=== PATIENT | female | born 1985 | race Hispanic/Latino ===

== ENCOUNTER 2018-01-30 07:23 | Emergency (ER) | payer BC, OTHER ==
[2018-01-30] MEDS ORDERED: HYDROCODONE/CHLORPHEN 5 ML/OSYR ONE (08:03)
--- NOTE | 2018-01-30 08:18 | EDPHYS ---
Physician Documentation [facility] Name: Sendy Bauer Age: 32 yrs Sex: Female : 1985 Arrival Date: 01/30/2018 Time: 07:26 Bed 13 Private MD: ED Physician Antonio Corea HPI: 01/30 07:32 This 32 yrs old Female presents to ER via Unassigned with complaints of Sinus rh1 Congestion, Cough, Breathing Difficulty. 07:32 The patient or guardian reports cough, described as moderate, with productive sputum, rh1 that is white. Onset: The symptoms/episode began/occurred 2 week(s) ago. Severity of symptoms: At their worst the symptoms were moderate, in the emergency department the symptoms are unchanged. Modifying factors: The symptoms are alleviated by mucinex, the symptoms are aggravated by nothing. Associated signs and symptoms: Pertinent positives: chest pain, with cough, rhinorrhea, vomiting, Pertinent negatives: diarrhea, nausea. The patient has not experienced similar symptoms in the past. The patient has not recently seen a physician. Began with runny nose/congestion, facial pain/pressure 2 weeks ago, gradually getting worse. Reports 2 days ago began with coughing, worse at night. Reports increased coughing today, and sternal, non - radiating, chest pain with breathing/coughing. No SOB, diaphoresis.. 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 - Social history:: Smoking status: Patient/guardian denies using tobacco. - Ebola Screening: : Patient negative for fever greater than or equal to 101.5 degrees Fahrenheit, and additional compatible Ebola Virus Disease symptoms Patient denies exposure to infectious person Patient denies travel to an Ebola-affected area in the 21 days before illness onset No symptoms or risks identified at this time. - Family history:: not pertinent. ROS: 07:32 Constitutional: Negative for fever, chills rh1 07:32 ENT: Positive for nasal discharge, rhinorrhea, sinus congestion, sinus pain. 07:32 Cardiovascular: Positive for chest pain, Negative for edema, palpitations. 07:32 Respiratory: Positive for cough, Negative for hemoptysis, shortness of breath, wheezing. 07:32 Abdomen/GI: Positive for vomiting, post - tussive emesis, Negative for abdominal pain, nausea. 07:32 Back: Negative for decreased range of motion, pain at rest, pain with movement, radiated pain. 07:32 MS/extremity: Negative for pain, swelling, tenderness. 07:32 Neuro: Negative for altered mental status, dizziness. 07:32 All other systems are negative. Exam: 07:32 Constitutional: This is a well developed, well nourished patient who is awake, alert, rh1 and in no acute distress. Head/Face: Normocephalic, atraumatic. 07:32 Neck: Trachea midline, and no cervical lymphadenopathy. Supple, full range of motion without nuchal rigidity. No Meningismus. Chest/axilla: Normal chest wall appearance and motion. Nontender with no deformity. No lesions are appreciated. Cardiovascular: Regular rate and rhythm with a normal S1 and S2. No gallops, murmurs, or rubs. No JVD. No pulse deficits. Respiratory: Lungs have equal breath sounds bilaterally, clear to auscultation. No rales, rhonchi or wheezes noted. No increased work of breathing. Abdomen/GI: Soft, non-tender, with normal bowel sounds. No distension. No guarding or rebound. No evidence of tenderness throughout. Back: No spinal tenderness. No costovertebral tenderness. Full range of motion. Skin: Warm, dry with normal turgor. Normal color with no rashes, no lesions, and no evidence of cellulitis. 07:32 ENT: External ear(s): are unremarkable, no pain with movement, Ear canal(s): are normal, clear, no cerumen impaction, no erythema, no foreign body, no purulent discharge, no swelling, TM's: are normal, no evidence of bulging, no dullness, no erythema, no fluid levels, no hemotympanum, no rupture, normal bony landmarks, Nose: Nasal mucosa: edematous, erythematous, Turbinates: are swollen bilaterally, nasal drainage, that is moderate, and is seen coming from both nares, that is clear, Mouth: is normal, no lip abnormalities, no mucosal abnormalities, Posterior pharynx: is normal, airway is patent, no exudate, no peritonsilar mass, no pooling of secretions, no swelling, normal tonsil apperance, normal sized tonsils, normal uvula appearance, normal uvula size, erythema, that is mild. 07:32 Musculoskeletal/extremity: DVT Exam: No signs of deep vein thrombosis. no pain, no swelling, no tenderness, negative Homans' sign noted on exam, no appreciated bluish discoloration, no erythema, no increased warmth. 07:32 Neuro: Orientation: is normal, to person, place \T\ time. Mentation: is normal, lucid, able to follow commands, Motor: is normal, moves all fours, Sensation: is normal, no obvious gross deficits, Gait: is steady, at a normal pace, without difficulty. Vital Signs: 07:42 BP 105 / 74; Pulse 82; Resp 16; Temp 98.2(O); Pulse Ox 98% on R/A; Weight 54.88 kg; iw Height 5 ft. 2 in. (157.48 cm); Pain 6/10; 08:24 BP 104 / 75; Pulse 80; Resp 16 S; Pulse Ox 100% on R/A; jl7 07:42 Body Mass Index 22.13 (54.88 kg, 157.48 cm) iw MDM: 07:32 Patient medically screened. rh1 08:16 Data reviewed: vital signs, nurses notes, radiologic studies, plain films, and as a rh1 result, I will discharge patient. Data interpreted: Pulse oximetry: on room air is 98 %. Interpretation: normal. Counseling: I had a detailed discussion with the patient and/or guardian regarding: the historical points, exam findings, and any diagnostic results supporting the discharge/admit diagnosis, radiology results, the need for outpatient follow up, a family practitioner, to return to the emergency department if symptoms worsen or persist or if there are any questions or concerns that arise at home. ED course: PERC = 0. 01/30 07:38 Order name: Chest Single View XRAY rh1 01/30 07:38 Order name: EKG - Nurse/Tech; Complete Time: 08:13 rh1 Administered Medications: 08:00 Drug: Tussionex Pennkinetic ER 5 ml Route: PO; jl7 08:25 Follow up: Response: No adverse reaction jl7 Disposition: 18:26 Co-signature as Attending Physician, Antonio Corea MD. Disposition: 01/30/18 08:17 Discharged to Home. Impression: Acute upper respiratory infection, unspecified, Acute sinusitis. - Condition is Stable. - Discharge Instructions: Upper Respiratory Infection, Adult, Cough, Adult. - Prescriptions for Tessalon Perles 100 mg Oral Capsule - take 1 capsule by ORAL route every 8 hours As needed; 15 capsule. Zithromax Z- Jamaal 250 mg Oral Tablet - take 1 tablet by ORAL route as directed for 5 days Day 1 - take two (2) tablets one time. Day 2, 3, 4 , 5 take one (1) tablet once daily.; 6 tablet. - Medication Reconciliation Form, Thank You Letter, Antibiotic Education, Prescription Opioid Use form. - Follow up: Private Physician; When: 1 - 2 days; Reason: Recheck today's complaints, Continuance of care, Re-evaluation by your physician. Follow up: Emergency Department; When: As needed; Reason: Fever > 102 F, If symptoms return, Trouble breathing, Worsening of condition. - Problem is new. - Symptoms have improved. Signatures: Dispatcher [employer] EDZora Cruz RN RN iw Inez Sweeney NP SHOPPER'S AIDE 1 Edin Guerrero RN RN jl7 Starr, Gregory, MD MD Corrections: (The following items were deleted from the chart) 08:25 08:17 01/30/2018 08:17 Discharged to Home. Impression: Acute upper respiratory jl7 infection, unspecified; Acute sinusitis. Condition is Stable. Discharge Instructions: Upper Respiratory Infection, Adult, Cough, Adult. Prescriptions for Tessalon Perles 100 mg Oral Capsule - take 1 capsule by ORAL route every 8 hours As needed; 15 capsule, Zithromax Z-Jamaal 250 mg Oral Tablet - take 1 tablet by ORAL route as directed for 5 days Day 1 - take two (2) tablets one time. Day 2, 3, 4 , 5 take one (1) tablet once daily.; 6 tablet. and Forms are Medication Reconciliation Form, Thank You Letter, Antibiotic Education, Prescription Opioid Use. Follow up: Private Physician; When: 1 - 2 days; Reason: Recheck today's complaints, Continuance of care, Re-evaluation by your physician. Follow up: Emergency Department; When: As needed; Reason: Fever > 102 F, If symptoms return, Trouble breathing, Worsening of condition. Problem is new. Symptoms have improved. rh1
--- NOTE | 2018-01-30 08:18 | ER ---
Nurse's Notes [facility] Name: Sendy Bauer Age: 32 yrs Sex: Female : 1985 Arrival Date: 01/30/2018 Time: 07:26 Bed 13 Private MD: Diagnosis: Acute upper respiratory infection, unspecified;Acute sinusitis Presentation: 01/30 07:40 Presenting complaint: Patient states: sinus congestion, runny nose X 2 weeks, cough X 2 iw days, productive, cough is worse at night, denies fever, also c/o midsternal CP when taking a deep breath and coughing. Transition of care: patient was not received from another setting of care. Onset of symptoms was January 20, 2018. Risk Assessment: Do you want to hurt yourself or someone else? Patient reports no desire to harm self or others. Initial Sepsis Screen: Does the patient meet any 2 criteria? No. Patient's initial sepsis screen is negative. Does the patient have a suspected source of infection? No. Patient's initial sepsis screen is negative. Care prior to arrival: None. 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 - Social history:: Smoking status: Patient/guardian denies using tobacco. - Ebola Screening: : Patient negative for fever greater than or equal to 101.5 degrees Fahrenheit, and additional compatible Ebola Virus Disease symptoms Patient denies exposure to infectious person Patient denies travel to an Ebola-affected area in the 21 days before illness onset No symptoms or risks identified at this time. - Family history:: not pertinent. Screenin:00 Abuse screen: Denies threats or abuse. Denies injuries from another. Nutritional jl7 screening: No deficits noted. Tuberculosis screening: No symptoms or risk factors identified. Fall Risk None identified. Assessment: 08:00 General: Appears in no apparent distress. uncomfortable, Behavior is calm, cooperative, jl7 appropriate for age. Pain: Denies pain. Neuro: Level of Consciousness is awake, alert, obeys commands, Oriented to person, place, time, situation. Cardiovascular: Heart tones present Patient's skin is warm and dry. Rhythm is regular. Respiratory: Airway is patent Respiratory effort is even, unlabored, Respiratory pattern is regular, symmetrical, Breath sounds are clear. Derm: Skin is pink, warm \T\ dry. Vital Signs: 07:42 BP 105 / 74; Pulse 82; Resp 16; Temp 98.2(O); Pulse Ox 98% on R/A; Weight 54.88 kg; iw Height 5 ft. 2 in. (157.48 cm); Pain 6/10; 08:24 BP 104 / 75; Pulse 80; Resp 16 S; Pulse Ox 100% on R/A; jl7 07:42 Body Mass Index 22.13 (54.88 kg, 157.48 cm) iw ED Course: 07:26 Patient arrived in ED. mr 07:28 [facility]ween[facility] rh1 07:28 Antonio Corea MD is Attending Physician. rh1 07:41 Triage completed. iw 07:42 Arm band placed on. iw 07:44 Edin Guerrero, [place] is Primary Nurse. jl7 08:00 Patient has correct armband on for positive identification. Bed in low position. Call jl7 light in reach. Side rails up X 1. Pulse ox on. NIBP on. 08:00 EKG done, by ED staff, reviewed by Inez Sweeney NP. jl7 08:10 Chest Single View XRAY In Process Unspecified. EDMS 08:24 No provider procedures requiring assistance completed. Patient did not have IV access jl7 during this emergency room visit. Administered Medications: 08:00 Drug: Tussionex Pennkinetic ER 5 ml Route: PO; jl7 08:25 Follow up: Response: No adverse reaction jl7 Outcome: 08:17 Discharge ordered by . rh1 08:24 Discharged to home ambulatory, with family. jl7 08:24 Condition: stable 08:24 Discharge instructions given to patient, family, Instructed on discharge instructions, follow up and referral plans. medication usage, Demonstrated understanding of instructions, follow-up care, medications, Prescriptions given X 2. 08:25 Patient left the ED. jl7 Signatures: Dispatcher [employer] EDMD Que Alyson Zora Goodman, RN RN iw Patel, Inez, INSTRUMENTATION AND CONTROLS TECHNICIAN INSTRUMENTATION AND CONTROLS TECHNICIAN rh1 Edin Guerrero RN RN jl7
--- NOTE | 2018-01-30 11:42 | RAD REPORT ---
EXAM DESCRIPTION: RAD - Chest Single View - 01/30/2018 8:09 am CLINICAL HISTORY: Cough;Chest pain Chest pain. COMPARISON: No comparisons FINDINGS: Portable technique limits examination quality. The lungs are grossly clear. The heart is normal in size. No displaced fractures. IMPRESSION: No acute intrathoracic process suspected.
--- NOTE | 2018-01-31 07:41 | EKG ---
Test Date: 2018-01-30 Test Time: 08:05:26 Clay Artisan: LUZ MARINA MEASUREMENT RESULTS: Intervals: Rate: 83 DE: 140 QRSD: 72 QT: 358 QTc: 420 [place]: P: 71 DE: 140 QRS: 63 T: 65 INTERPRETIVE STATEMENTS: Normal sinus rhythm Normal ECG No previous ECG available for comparison Electronically Signed On 01-31-18 07:40:26 CDT by Eladio Matos
== END 2018-01-30 08:25 | disposition home or self-care (01) ==
LOC: ER 07:23
DX: J01.90 Acute sinusitis, unspecified (principal); Z98.82 Breast implant status; Z88.1 Allergy status to other antibiotic agents; Z88.6 Allergy status to analgesic agent
CPT/HCPCS: 71045; 93005; 99284

== ENCOUNTER 2018-03-16 19:04 | Emergency (ER) | payer BC, OTHER ==
[2018-03-16] MEDS ORDERED: KETOROLAC 30 MG/ML INJ ONE (22:55)
--- NOTE | 2018-03-16 23:13 | EDPHYS ---
Physician Documentation [facility] Name: Sendy Bauer Age: 32 yrs Sex: Female : 1985 Arrival Date: 03/16/2018 Time: 19:07 Bed 25 Private MD: None, None ED Physician Antonio Corea HPI: 03/16 22:46 This 32 yrs old Female presents to ER via Ambulatory with complaints of Pelvic snw Pain. 22:46 The patient presents with abdominal pain right lower quadrant, right flank. Onset: The snw symptoms/episode began/occurred gradually, and became worse yesterday. The symptoms do not radiate. Associated signs and symptoms: Pertinent negatives: nausea, vomiting, and diarrhea, fever. The symptoms are described as crampy, vague. Severity of pain: At its worst the pain was moderate. It is unknown whether or not the patient has had similar symptoms in the past. The patient has been recently seen by a physician: the patient's primary care provider, with similar presenting complaints, and apparently given a diagnosis of UTI, was given a prescription for antibiotics. 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 - Social history:: Smoking status: Patient/guardian denies using tobacco. - Ebola Screening: : Patient negative for fever greater than or equal to 101.5 degrees Fahrenheit, and additional compatible Ebola Virus Disease symptoms Patient denies exposure to infectious person Patient denies travel to an Ebola-affected area in the 21 days before illness onset No symptoms or risks identified at this time. ROS: 22:44 Constitutional: Negative for fever, chills, and weight loss, Eyes: Negative for injury, snw pain, redness, and discharge, ENT: Negative for injury, pain, and discharge, Neck: Negative for injury, pain, and swelling, Cardiovascular: Negative for chest pain, palpitations, and edema, Respiratory: Negative for shortness of breath, cough, wheezing, and pleuritic chest pain, Back: Negative for injury and pain, : Negative for injury, bleeding, discharge, and swelling, MS/Extremity: Negative for injury and deformity, Skin: Negative for injury, rash, and discoloration, Neuro: Negative for headache, weakness, numbness, tingling, and seizure. 22:44 Abdomen/GI: Positive for abdominal pain, Negative for nausea and vomiting, diarrhea, constipation, fever. 22:44 : Positive for urinary symptoms, pt currently being tx for UTI, on augmentin. Exam: 22:43 Constitutional: This is a well developed, well nourished patient who is awake, alert, snw and in no acute distress. Head/Face: Normocephalic, atraumatic. Eyes: Pupils equal round and reactive to light, extra-ocular motions intact. Lids and lashes normal. Conjunctiva and sclera are non-icteric and not injected. Cornea within normal limits. Periorbital areas with no swelling, redness, or edema. ENT: Nares patent. No nasal discharge, no septal abnormalities noted. Tympanic membranes are normal and external auditory canals are clear. Oropharynx with no redness, swelling, or masses, exudates, or evidence of obstruction, uvula midline. Mucous membranes moist. Neck: Trachea midline, no thyromegaly or masses palpated, and no cervical lymphadenopathy. Supple, full range of motion without nuchal rigidity, or vertebral point tenderness. No Meningismus. Chest/axilla: Normal chest wall appearance and motion. Nontender with no deformity. No lesions are appreciated. Cardiovascular: Regular rate and rhythm with a normal S1 and S2. No gallops, murmurs, or rubs. Normal PMI, no JVD. No pulse deficits. Respiratory: Lungs have equal breath sounds bilaterally, clear to auscultation and percussion. No rales, rhonchi or wheezes noted. No increased work of breathing, no retractions or nasal flaring. Back: No spinal tenderness. No costovertebral tenderness. Full range of motion. Skin: Warm, dry with normal turgor. Normal color with no rashes, no lesions, and no evidence of cellulitis. MS/ Extremity: Pulses equal, no cyanosis. Neurovascular intact. Full, normal range of motion. Neuro: Awake and alert, GCS 15, oriented to person, place, time, and situation. Cranial nerves II-XII grossly intact. Motor strength 5/5 in all extremities. Sensory grossly intact. Cerebellar exam normal. Normal gait. Psych: Awake, alert, with orientation to person, place and time. Behavior, mood, and affect are within normal limits. 22:43 Abdomen/GI: Inspection: abdomen appears normal, Bowel sounds: normal, Palpation: mild abdominal tenderness, in the posterior aspect of right lateral abdomen and right lower quadrant. Vital Signs: 19:14 BP 109 / 84; Pulse 89; Resp 19; Temp 98.5; Pulse Ox 98% on R/A; Weight 58.51 kg; Height aj 5 ft. 2 in. (157.48 cm); 22:53 BP 102 / 73; Pulse 76; Resp 18; Pulse Ox 96% on R/A; tl3 23:29 BP 98 / 70; Pulse 73; Resp 18; Pulse Ox 96% on R/A; tl3 19:14 Body Mass Index 23.59 (58.51 kg, 157.48 cm) aj MDM: 20:21 Patient medically screened. snw 23:13 Data reviewed: vital signs, nurses notes. Data interpreted: Pulse oximetry: on room air snw is 96 %. Interpretation: acceptable. Counseling: I had a detailed discussion with the patient and/or guardian regarding: the historical points, exam findings, and any diagnostic results supporting the discharge/admit diagnosis, lab results, radiology results, the need for outpatient follow up, to return to the emergency department if symptoms worsen or persist or if there are any questions or concerns that arise at home. Special discussion: Based on the patient's Hx, exam, and Dx evaluation, there is no indication for emergent surgery or inpatient Tx. It is understood by the patient/guardian that if the Sx's persist or worsen they need to return immediately for re-evaluation. Based on the history and exam findings, there is no indication for further emergent testing or inpatient evaluation. I discussed with the patient/guardian the need to see the OB Gyne specialist for further evaluation of the symptoms. 03/16 22:29 Order name: Urine Dipstick--Ancillary (enter results); Complete Time: 23:20 em1 03/16 19:36 Order name: Urine Test (obtain specimen); Complete Time: 22:27 snw 03/16 19:36 Order name: Urine Dipstick-Ancillary (obtain specimen); Complete Time: 22:27 sn 03/16 22:00 Order name: CT Stone Protocol [facility] Administered Medications: 22:51 Drug: TORadol 60 mg Route: IM; Site: right gluteus; tl3 23:30 Follow up: Response: No adverse reaction; Pain is decreased tl3 Disposition: 03/16/18 23:11 Discharged to Home. Impression: Follicular cyst of ovary, Lower abdominal pain, unspecified. - Condition is Stable. - Discharge Instructions: Abdominal Pain, Adult, Ovarian Cyst, [id number], Heat Therapy. - Prescriptions for Diclofenac Sodium 75 mg Oral Tablet Sustained Release - take 1 tablet by ORAL route 2 times per day; 30 tablet. - Medication Reconciliation Form, Thank You Letter, Antibiotic Education, Prescription Opioid Use form. - Follow up: Private Physician; When: 2 - 3 days; Reason: Recheck today's complaints, Continuance of care, Re-evaluation by your physician. Follow up: Emergency Department; When: As needed; Reason: Worsening of condition. - Problem is new. - Symptoms are unchanged. - Notes: Please continue antibiotics Addendum: 03/19/2018 06:45 Co-signature as Attending Physician, Antonio Corea MD. g s Signatures: Dispatcher [employer] Lashae Mendes RN RN Nimco Staples, INTEGRATED LOGISTICS SUPPORT MANAGER-C INTEGRATED LOGISTICS SUPPORT MANAGER-Csnw Antonio Corea MD MD gs Lowrey, Tammy RN RN tl3 Corrections: (The following items were deleted from the chart) 03/16 23:12 23:11 03/16/2018 23:11 Discharged to Home. Impression: Follicular cyst of ovary; Lower snw abdominal pain, unspecified. Condition is Stable. Forms are Medication Reconciliation Form, Thank You Letter, Antibiotic Education, Prescription Opioid Use. Follow up: Private Physician; When: 2 - 3 days; Reason: Recheck today's complaints, Continuance of care, Re-evaluation by your physician. Follow up: Emergency Department; When: As needed; Reason: Worsening of condition. [facility] 23:31 23:12 03/16/2018 23:11 Discharged to Home. Impression: Follicular cyst of ovary; Lower tl3 abdominal pain, unspecified. Condition is Stable. Forms are Medication Reconciliation Form, Thank You Letter, Antibiotic Education, Prescription Opioid Use. Follow up: Private Physician; When: 2 - 3 days; Reason: Recheck today's complaints, Continuance of care, Re-evaluation by your physician. Follow up: Emergency Department; When: As needed; Reason: Worsening of condition. Problem is new. Symptoms are unchanged. snw
--- NOTE | 2018-03-16 23:13 | ER ---
Nurse's Notes [facility] Name: Sendy Bauer Age: 32 yrs Sex: Female : 1985 Arrival Date: 03/16/2018 Time: 19:07 Bed 25 Private MD: None, None Diagnosis: Follicular cyst of ovary;Lower abdominal pain, unspecified Presentation: 03/16 19:13 Presenting complaint: Patient states: RLQ pain that radiates to back that started aj yesterday. Patient DX with UTI on 03/07 and started on abx. Transition of care: patient was not received from another setting of care. Onset of symptoms was March 15, 2018. Risk Assessment: Do you want to hurt yourself or someone else? Patient reports no desire to harm self or others. Initial Sepsis Screen: Does the patient meet any 2 criteria? No. Patient's initial sepsis screen is negative. Does the patient have a suspected source of infection? No. Patient's initial sepsis screen is negative. Care prior to arrival: None. 19:13 Method Of Arrival: Ambulatory 19:13 Acuity: JAMIE 3 aj Triage Assessment: 19:14 General: Appears in no apparent distress. uncomfortable, Behavior is calm, cooperative, aj appropriate for age. Pain: Complains of pain in right lower quadrant. Neuro: Level of Consciousness is awake, alert, obeys commands, Oriented to person, place, time, situation, Appropriate for age. Respiratory: Airway is patent Trachea midline Respiratory effort is even, unlabored, Respiratory pattern is regular, symmetrical. GI: Reports lower abdominal pain, nausea. Derm: Skin is intact, is healthy with good turgor, Skin is pink, warm \T\ dry. normal. 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 - Social history:: Smoking status: Patient/guardian denies using tobacco. - Ebola Screening: : Patient negative for fever greater than or equal to 101.5 degrees Fahrenheit, and additional compatible Ebola Virus Disease symptoms Patient denies exposure to infectious person Patient denies travel to an Ebola-affected area in the 21 days before illness onset No symptoms or risks identified at this time. Screenin:18 Abuse screen: Denies threats or abuse. Nutritional screening: No deficits noted. tl3 Tuberculosis screening: No symptoms or risk factors identified. Fall Risk None identified. Assessment: 21:39 Reassessment: pt diagnosed with UTI on 03/07 and put on Augmentin, bran has not gotten tl3 better. General: Appears distressed, uncomfortable, well groomed, well developed, well nourished, Behavior is calm, cooperative, appropriate for age. Pain: Complains of pain in left low back and abdomen and right lower quadrant Pain currently is 8 out of 10 on a pain scale. Neuro: Level of Consciousness is awake, alert, obeys commands, Oriented to person, place, time, situation, Appropriate for age. Cardiovascular: Patient's skin is warm and dry. Respiratory: Airway is patent Respiratory effort is even, unlabored, Respiratory pattern is regular, symmetrical. GI: No signs and/or symptoms were reported involving the gastrointestinal system. : Urine is Reports pain in right flank(s), lower quadrant(s) with urination. EENT: No signs and/or symptoms were reported regarding the EENT system. Derm: No signs and/or symptoms reported regarding the dermatologic system. Musculoskeletal: No signs and/or symptoms reported regarding the musculoskeletal system. 22:53 Reassessment: Patient appears in no apparent distress at this time. No changes from tl3 previously documented assessment. Patient and/or family updated on plan of care and expected duration. Pain level reassessed. Patient is alert, oriented x 3, equal unlabored respirations, skin warm/dry/pink. lights dimmed, blanket offered, no other needs at this time. 23:29 Reassessment: Patient appears in no apparent distress at this time. No changes from tl3 previously documented assessment. Patient and/or family updated on plan of care and expected duration. Pain level reassessed. Patient is alert, oriented x 3, equal unlabored respirations, skin warm/dry/pink. Vital Signs: 19:14 BP 109 / 84; Pulse 89; Resp 19; Temp 98.5; Pulse Ox 98% on R/A; Weight 58.51 kg; Height aj 5 ft. 2 in. (157.48 cm); 22:53 BP 102 / 73; Pulse 76; Resp 18; Pulse Ox 96% on R/A; tl3 23:29 BP 98 / 70; Pulse 73; Resp 18; Pulse Ox 96% on R/A; tl3 19:14 Body Mass Index 23.59 (58.51 kg, 157.48 cm) ED Course: 19:07 Patient arrived in ED. mr 19:08 None, None is Private Physician. mr 19:13 Triage completed. aj 19:14 Arm band placed on right wrist. Patient placed in waiting room, Patient notified of wait time. 19:35 Nimco Judge FNP-C [facility]. snw 19:35 Antonio Corea MD is Attending Physician. snw 21:39 Clara Johnson, RN is Primary Nurse. tl3 22:[address] via wheelchair. tl3 22:18 Patient has correct armband on for positive identification. tl3 22:18 No provider procedures requiring assistance completed. tl3 22:21 CT completed. Patient tolerated procedure well. Patient moved back from [place]. ri 22:24 CT Stone Protocol In Process Unspecified. EDMS 23:29 Patient did not have IV access during this emergency room visit. tl3 Administered Medications: 22:51 Drug: TORadol 60 mg Route: IM; Site: right gluteus; tl3 23:30 Follow up: Response: No adverse reaction; Pain is decreased tl3 Outcome: 23:11 Discharge ordered by . snw 23:29 Discharged to home ambulatory. tl3 23:29 Condition: stable 23:29 Discharge instructions given to patient, Instructed on discharge instructions, follow up and referral plans. Demonstrated understanding of instructions, follow-up care, medications, Prescriptions given X 1. 23:31 Patient left the ED. tl3 Signatures: Dispatcher [employer] Lashae Mendes, RN Nimco Vaughan FNP-C FNP-Chandana QueAlyson mr CruzSuman Tammy, RN RN tl3
[2018-03-16 23:17] LABS: Urine Blood NEGATIVE (NEG); Urine Glucose NEGATIVE (NEG); Urine Protein NEGATIVE (NEG); Urine Specific Gravity 1.025 (1.005-1.030)
--- NOTE | 2018-03-17 07:54 | RAD REPORT ---
EXAM DESCRIPTION: CT - Stone Protocol - 03/17/2018 2:47 am CLINICAL HISTORY: Abdominal pain. Right lower quadrant pain COMPARISON: None. TECHNIQUE: Computed axial tomography of the abdomen pelvis was obtained without oral or IV contrast. Lack of IV and oral contrast limits evaluation of solid organs, bowel, and vessels. Coronal reformat jessica images were obtained and reviewed. Preliminary report was generated by virtual radiologic and rev iewed prior to dictation the All CT scans are performed using dose optimization technique as appropriate and may include automated exposure control or mA/KV adjustment according to patient size. FINDINGS: A renal calculus is not seen. An ureteral calculus is not noted. A bladder calculus is not present. The liver, spleen, pancreas and adrenals appear grossly normal There is no evidence of diverticulitis. The appendix is not seen. If the patient has clinical symptoms to suggest appendicitis then a CT scan with IV and oral contrast and opacification of terminal ileum/ cecum would be recommended A 5 centimeter cystic mass is present within the anterior pelvis. A hysterectomy has been performed IMPRESSION: Negative for a genitourinary calculus 5 centimeter cystic mass in the right pelvis likely representing an ovarian cyst. Significant free fl uid is not noted. Followup ultrasound in a couple months is recommended to assess stability/resolutio n
== END 2018-03-16 23:31 | disposition home or self-care (01) ==
LOC: ER 19:04
DX: N83.00 Follicular cyst of ovary, unspecified side (principal); Z98.82 Breast implant status; Z88.1 Allergy status to other antibiotic agents; Z88.5 Allergy status to narcotic agent
CPT/HCPCS: 74176; 76377; 81003; 96372; 99284

== ENCOUNTER 2018-08-21 08:56 | Emergency (ER) | payer BC, OTHER ==
--- NOTE | 2018-08-21 09:28 | EDPHYS ---
Physician Documentation [facility] Name: Sendy Bauer Age: 32 yrs Sex: Female : 1985 Arrival Date: 08/21/2018 Time: 08:57 Bed 6 Private MD: Sandrine Ga K ED Physician Charanjit Samson HPI: 08/21 09:22 This 32 yrs old Female presents to ER via Ambulatory with complaints of carey Allergic Reaction. 09:22 The patient presents with itching, rash, redness of skin. Onset: The symptoms/episode carey began/occurred 4 day(s) ago. Associated signs and symptoms: The patient has no apparent associated signs or symptoms. Possible causes: poison rusty, poison oak. At home the patient or guardian has treated the symptoms with Benadryl, steroids. Severity of symptoms: At their worst the symptoms were mild in the emergency department the symptoms are unchanged. The patient has not experienced similar symptoms in the past. 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 - Social history:: Smoking status: Patient/guardian denies using tobacco. - Ebola Screening: : No symptoms or risks identified at this time. ROS: 09:24 Constitutional: Negative for fever, chills, and weight loss, Eyes: Negative for injury, carey pain, redness, and discharge, ENT: Negative for injury, pain, and discharge, Neck: Negative for injury, pain, and swelling, Cardiovascular: Negative for chest pain, palpitations, and edema, Respiratory: Negative for shortness of breath, cough, wheezing, and pleuritic chest pain, Abdomen/GI: Negative for abdominal pain, nausea, vomiting, diarrhea, and constipation, Back: Negative for injury and pain, : Negative for injury, bleeding, discharge, and swelling, MS/Extremity: Negative for injury and deformity, Neuro: Negative for headache, weakness, numbness, tingling, and seizure, Psych: Negative for depression, anxiety, suicide ideation, homicidal ideation, and hallucinations, Allergy/Immunology: Negative for hives, rash, and allergies, Endocrine: Negative for neck swelling, polydipsia, polyuria, polyphagia, and marked weight changes, Hematologic/Lymphatic: Negative for swollen nodes, abnormal bleeding, and unusual bruising. 09:24 Skin: Positive for rash, diffusely. Exam: :24 Constitutional: This is a well developed, well nourished patient who is awake, alert, carey and in no acute distress. Head/Face: Normocephalic, atraumatic. Eyes: Pupils equal round and reactive to light, extra-ocular motions intact. Lids and lashes normal. Conjunctiva and sclera are non-icteric and not injected. Cornea within normal limits. Periorbital areas with no swelling, redness, or edema. ENT: Nares patent. No nasal discharge, no septal abnormalities noted. Tympanic membranes are normal and external auditory canals are clear. Oropharynx with no redness, swelling, or masses, exudates, or evidence of obstruction, uvula midline. Mucous membranes moist. Neck: Trachea midline, no thyromegaly or masses palpated, and no cervical lymphadenopathy. Supple, full range of motion without nuchal rigidity, or vertebral point tenderness. No Meningismus. Chest/axilla: Normal chest wall appearance and motion. Nontender with no deformity. No lesions are appreciated. Cardiovascular: Regular rate and rhythm with a normal S1 and S2. No gallops, murmurs, or rubs. Normal PMI, no JVD. No pulse deficits. Respiratory: Lungs have equal breath sounds bilaterally, clear to auscultation and percussion. No rales, rhonchi or wheezes noted. No increased work of breathing, no retractions or nasal flaring. Abdomen/GI: Soft, non-tender, with normal bowel sounds. No distension or tympany. No guarding or rebound. No evidence of tenderness throughout. Back: No spinal tenderness. No costovertebral tenderness. Full range of motion. Pelvic Exam: Normal external genitalia. Speculum exam with closed cervical os, no discharge or bleeding noted. Bimanual exam with normal adnexa, no adnexal or cervical motion tenderness. Normal uterus. MS/ Extremity: Pulses equal, no cyanosis. Neurovascular intact. Full, normal range of motion. Neuro: Awake and alert, GCS 15, oriented to person, place, time, and situation. Cranial nerves II-XII grossly intact. Motor strength 5/5 in all extremities. Sensory grossly intact. Cerebellar exam normal. Normal gait. Psych: Awake, alert, with orientation to person, place and time. Behavior, mood, and affect are within normal limits. 09:24 Skin: Appearance: Color: erythematous, cellulitis, that is minimal, rash a moderate rash is noted, rash can be described as erythematous, macular, raised, contact dermatitis, and is diffusely located. Vital Signs: 09:07 BP 120 / 85; Pulse 96; Resp 16; Temp 97.8; Pulse Ox 98% on R/A; Pain 0/10; hb 09:56 BP 108 / 79; Pulse 88; Resp 16; Pulse Ox 99% ; sv MDM: 09:07 Patient medically screened. [facility] 09:24 Data reviewed: vital signs, nurses notes. [facility] Administered Medications: 09:34 Drug: Decadron 10 mg Route: IM; Site: right deltoid; sv 09:56 Follow up: Response: No adverse reaction sv 09:34 Drug: Benadryl 50 mg Route: PO; sv 09:56 Follow up: Response: No adverse reaction sv 09:34 Drug: Pepcid 40 mg Route: PO; sv 09:56 Follow up: Response: No adverse reaction sv Disposition: 08/21/18 09:26 Discharged to Home. Impression: Rash and other nonspecific skin eruption - contact. - Condition is Stable. - Discharge Instructions: Contact Dermatitis, Rash, Rash, Vmyo-[id number], Contact Dermatitis, [id number]. - Prescriptions for Bactroban 2 % Topical Ointment - Apply to affected area 1 application by TOPICAL route every 12 hours; 30 gram. Benadryl 25 mg Oral Capsule - take 1 capsule by ORAL route every 6 hours As needed; 30 tablet. Pepcid 20 mg Oral Tablet - take 1 tablet by ORAL route every 12 hours for 10 days; 20 tablet. Medrol (Jamaal) 4 mg Oral Tablets, Dose Pack - take 1 tablet by ORAL route as directed - follow package instructions; 1 packet. - Medication Reconciliation Form, Thank You Letter, Antibiotic Education, Prescription Opioid Use form. - Follow up: Sandrine Ga MD; When: 2 - 3 days; Reason: Recheck today's complaints, Continuance of care, Re-evaluation by your physician. - Problem is new. - Symptoms have improved. Signatures: Edelmira Meyer RN RN Charanjit Mason MD MD cha Baxter, Heather, RN RN Corrections: (The following items were deleted from the chart) 09:57 09:26 08/21/2018 09:26 Discharged to Home. Impression: Rash and other nonspecific skin sv eruption - contact. Condition is Stable. Forms are Medication Reconciliation Form, Thank You Letter, Antibiotic Education, Prescription Opioid Use. Follow up: Sandrine Ga; When: 2 - 3 days; Reason: Recheck today's complaints, Continuance of care, Re-evaluation by your physician. Problem is new. Symptoms have improved. carey
--- NOTE | 2018-08-21 09:28 | ER ---
Nurse's Notes [facility] Name: Sendy Bauer Age: 32 yrs Sex: Female : 1985 Arrival Date: 08/21/2018 Time: 08:57 Bed 6 Private MD: Sandrine Ga K Diagnosis: Rash and other nonspecific skin eruption-contact Presentation: 08/21 09:05 Presenting complaint: Rash on trunk and arms after exposure to poison rusty one week ago, hb rash spread to neck and face today. Seen at urgent care on Wednesday, received steroid shot, on methylprednisolone, Kenalog, and hydroxyzine. Transition of care: patient was not received from another setting of care. Onset: The symptoms/episode began/occurred gradually, last week, and became worse today, yesterday. Anaphylaxis evaluation, the patient reports or I have noted the following symptoms which indicate a significant risk of anaphylaxis: no signs or symptoms of anaphylaxis were noted. Onset of symptoms was August 15, 2018. Risk Assessment: Do you want to hurt yourself or someone else? Patient reports no desire to harm self or others. Initial Sepsis Screen: Does the patient meet any 2 criteria? No. Patient's initial sepsis screen is negative. Does the patient have a suspected source of infection? No. Patient's initial sepsis screen is negative. Care prior to arrival: None. 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 - Social history:: Smoking status: Patient/guardian denies using tobacco. - Ebola Screening: : No symptoms or risks identified at this time. Screenin:07 Abuse screen: Denies threats or abuse. Denies injuries from another. Nutritional sv screening: No deficits noted. Tuberculosis screening: No symptoms or risk factors identified. Fall Risk None identified. Assessment: 09:07 General: Appears in no apparent distress. comfortable, well groomed, well developed, sv Behavior is calm, cooperative, appropriate for age. Pain: Denies pain. Neuro: Level of Consciousness is awake, alert, obeys commands, Oriented to person, place, time, situation, Moves all extremities. Full function Gait is steady. Respiratory: Airway is patent Respiratory effort is even, unlabored, Respiratory pattern is regular, symmetrical. Derm: Skin is pink, warm \T\ dry. Rash noted that is itchy, red, urticaria, on face, chest and abdomen. 09:56 Reassessment: Patient appears in no apparent distress at this time. No changes from sv previously documented assessment. Patient and/or family updated on plan of care and expected duration. Pain level reassessed. Patient is alert, oriented x 3, equal unlabored respirations, skin warm/dry/pink. Vital Signs: 09:07 BP 120 / 85; Pulse 96; Resp 16; Temp 97.8; Pulse Ox 98% on R/A; Pain 0/10; hb 09:56 BP 108 / 79; Pulse 88; Resp 16; Pulse Ox 99% ; sv ED Course: 08:57 Patient arrived in ED. mr 08:58 Sandrine Ga MD is Private Physician. mr 09:05 Edelmira Meyer, [place] is Primary Nurse. sv 09:07 Charanjit Samsno MD is Attending Physician. carey 09:07 Triage completed. hb 09:07 Arm band placed on. sv 09:07 Patient has correct armband on for positive identification. Bed in low position. Call sv light in reach. Adult w/ patient. Pulse ox on. NIBP on. Door closed. Head of bed elevated. 09:26 Sandrine Ga MD is Referral Physician. carey 09:37 No provider procedures requiring assistance completed. Patient did not have IV access sv during this emergency room visit. Administered Medications: 09:34 Drug: Decadron 10 mg Route: IM; Site: right deltoid; sv 09:56 Follow up: Response: No adverse reaction sv 09:34 Drug: Benadryl 50 mg Route: PO; sv 09:56 Follow up: Response: No adverse reaction sv 09:34 Drug: Pepcid 40 mg Route: PO; sv 09:56 Follow up: Response: No adverse reaction sv Outcome: 09:26 Discharge ordered by . carey 09:56 Discharged to home ambulatory, with family. sv 09:56 Condition: stable 09:56 Discharge instructions given to patient, Instructed on discharge instructions, follow up and referral plans. medication usage, Demonstrated understanding of instructions, follow-up care, medications, Prescriptions given X 3. 09:57 Patient left the ED. sv Signatures: Edelmira Meyer RN RN sv Anderson, Corey, MD MD cha Rivera [facility] Marine Clark, [place] PERRY
[2018-08-21] MEDS ORDERED: DEXAMETHASONE 10 MG/ML VIAL ONE (09:41)
[2018-08-21] MEDS ORDERED: FAMOTIDINE 20 MG TAB ONE (09:42)
[2018-08-21] MEDS ORDERED: DIPHENHYDRAMINE 25 MG TAB/CAP ONE (09:42)
== END 2018-08-21 09:57 | disposition home or self-care (01) ==
LOC: ER 08:56
DX: R21 Rash and other nonspecific skin eruption (principal); L29.9 Pruritus, unspecified; Z88.1 Allergy status to other antibiotic agents; Z88.5 Allergy status to narcotic agent
CPT/HCPCS: 96372; 99283; J1100

== ENCOUNTER 2018-09-04 09:39 | Emergency (ER) | payer BC, OTHER ==
[2018-09-04 10:34] LABS: Absolute Lymphocytes (CBC) 0.6 K/uL (0.7-4.9); Absolute Monocytes 0.8 K/uL (0.1-1.3); Absolute Neutrophil 7.6 K/uL (1.8-8.0); Basophils % 0.1 % (0-1.3); Eosinophils % 0.8 % (0-4.4); Hematocrit 39.4 % (36.0-45.0); MPV 7.7 fL (7.6-11.3); Monocytes % 8.6 % (3.3-12.3); RBC Red Blood Cell Count 4.42 M/uL (3.86-4.86)
[2018-09-04] MEDS ORDERED: NA CHLORIDE 0.9% 1,000 ML ONE (10:39)
[2018-09-04] MEDS ORDERED: PROMETHAZINE 25 MG/ML VIAL ONE (10:39)
[2018-09-04 11:01] LABS: ALT/SGPT 18 U/L (12-78); AST/SGOT 13 U/L (15-37); Albumin 3.3 g/dL (3.4-5.0); Alkaline Phosphatase 54 U/L (45-117); BUN Blood Urea Nitrogen 14 mg/dL (7-18); Bicarbonate 25 mmol/L (21-32); Bilirubin Direct < 0.1 mg/dL (0-0.2); Bilirubin Total 0.5 mg/dL (0.2-1.0); Glucose Level 149 mg/dL (74-106); Lipase 72 U/L (73-393); Potassium 3.8 mmol/L (3.5-5.1); Protein, Total 7.3 g/dL (6.4-8.2); Sodium Level 139 mmol/L (136-145)
[2018-09-04 11:53] LABS: Urine Bacteria <20 /HPF (<20); Urine Culture Reflex Order NOT NEEDED; Urine Mucus 1+ /HPF (NONE SEEN); Urine RBC <5 /HPF (NONE SEEN)
[2018-09-04] MEDS ORDERED: DICYCLOMINE HCL 10 MG CAP ONE (11:55)
--- NOTE | 2018-09-04 12:16 | ER ---
Nurse's Notes [facility] Name: Sendy Bauer Age: 32 yrs Sex: Female : 1985 Arrival Date: 09/04/2018 Time: 09:40 Bed 7 Private MD: Sandrine Ga K Diagnosis: Nausea and vomiting;Diarrhea, unspecified Presentation: 09/04 10:02 Presenting complaint: Patient states: N/V/D, generalized abd cramping and fever x 2 ss days. Transition of care: patient was not received from another setting of care. Onset of symptoms was September 02, 2018. Risk Assessment: Do you want to hurt yourself or someone else? Patient reports no desire to harm self or others. Initial Sepsis Screen: Does the patient meet any 2 criteria? No. Patient's initial sepsis screen is negative. Does the patient have a suspected source of infection? No. Patient's initial sepsis screen is negative. Care prior to arrival: None. 10:02 Method Of Arrival: Ambulatory ss 10:02 Acuity: JAMIE 3 ss Historical: - Allergies: 10:08 Cipro; ss 10:08 Tramadol HCl; ss - Home Meds: 10:08 None [Active]; ss - PMHx: 10:08 None; ss - PSHx: 10:08 Hysterectomy; ; breast augmentation; ss - Immunization history:: Adult Immunizations up to date. - Social history:: Smoking status: Patient/guardian denies using tobacco. - Ebola Screening: : Patient denies exposure to infectious person Patient denies travel to an Ebola-affected area in the 21 days before illness onset. Screenin:10 Abuse screen: Denies threats or abuse. Denies injuries from another. Nutritional sg screening: No deficits noted. Tuberculosis screening: No symptoms or risk factors identified. Never had TB. Fall Risk None identified. Assessment: 10:10 General: Appears in no apparent distress. well groomed, well developed, well nourished, sg Behavior is calm, cooperative, appropriate for age. Pain: Complains of pain in abdomen Quality of pain is described as aching. Neuro: Level of Consciousness is awake, alert, obeys commands, Oriented to person, place, time, situation, Rail Track Layer are equal bilaterally Moves all extremities. Full function Gait is steady, Speech is normal, Facial symmetry appears normal, Pupils are PERRLA. Cardiovascular: Patient's skin is warm and dry. Respiratory: Airway is patent Respiratory effort is even, unlabored, Respiratory pattern is regular, symmetrical, Breath sounds are clear. GI: Abdomen is flat, non-distended, Bowel sounds present X 4 quads. Abd is soft and non tender X 4 quads. Reports diarrhea, nausea, vomiting. : No signs and/or symptoms were reported regarding the genitourinary system. EENT: No signs and/or symptoms were reported regarding the EENT system. EENT: Oral mucosa is moist. Derm: Skin is pale. Derm: Rash noted that is red, on abdomen, dorsal aspect of right forearm and right wrist. Musculoskeletal: No signs and/or symptoms reported regarding the musculoskeletal system. 11:59 Reassessment: Patient appears in no apparent distress at this time. Patient and/or sg family updated on plan of care and expected duration. Pain level reassessed. Patient states symptoms have not improved. Vital Signs: 10:08 BP 108 / 77; Pulse 109; Resp 17; Temp 99.6(TE); Pulse Ox 97% on R/A; Weight 56.7 kg; ss Height 5 ft. 2 in. (157.48 cm); Pain 4/10; 11:51 BP 103 / 71; Pulse 98; Resp 18 S; Pulse Ox 99% on R/A; sg 12:45 BP 108 / 72; Pulse 97; Resp 17; Pulse Ox 99% on R/A; Pain 2/10; sg 10:08 Body Mass Index 22.86 (56.70 kg, 157.48 cm) ED Course: 09:40 Patient arrived in ED. as 09:40 Sandrine Ga MD is Private Physician. as 09:56 Nimco Judge FNP-C [facility]. snw 09:56 Charanjit Samson MD is Attending Physician. snw 10:07 Triage completed. ss 10:08 Arm band placed on right wrist. ss 10:10 Initial lab(s) drawn, by me, sent to lab. Inserted saline lock: 22 gauge in right sg antecubital area, using aseptic technique. Blood collected. 10:15 Patient has correct armband on for positive identification. Bed in low position. Call sg light in reach. Pulse ox on. NIBP on. 10:20 Velez, Mika, RN is Primary Nurse. sg 11:37 Urine collected: clean catch specimen, ramya colored. 3 12:15 Sandrine Ga MD is Referral Physician. snw 13:00 No provider procedures requiring assistance completed. IV discontinued, intact, sg bleeding controlled, No redness/swelling at site. Pressure dressing applied. Administered Medications: 10:30 Drug: NS 0.9% 1000 ml Route: IV; Rate: 1 bolus; Site: right antecubital; sg 11:29 Follow up: IV Status: Completed infusion; IV Intake: 1000ml ss 10:30 Drug: Phenergan 6.25 mg Route: IVP; Site: right antecubital; sg 11:17 Follow up: Response: No adverse reaction sg 11:51 Drug: Bentyl 20 mg Route: PO; sg 13:04 Follow up: Response: No adverse reaction sg 12:22 Drug: TORadol 30 mg Route: IVP; Site: right antecubital; sg 13:04 Follow up: Response: No adverse reaction; Pain is decreased sg Intake: 11:29 IV: 1000ml; Total: 1000ml. Outcome: 12:15 Discharge ordered by . snw 13:00 Discharged to home ambulatory, with friend. sg 13:00 Condition: good 13:00 Discharge instructions given to patient, Instructed on discharge instructions, follow up and referral plans. medication usage, safety practices, Demonstrated understanding of instructions, follow-up care, medications, Prescriptions given X 2. 13:05 Patient left the ED. sg Signatures: Mika Velez, RN [place] Nimco Judge, STUDENT OFFICER-C STUDENT OFFICER-Shana Pearson Shelby, RN RN Emelyn Rowley [facility]
--- NOTE | 2018-09-04 12:16 | EDPHYS ---
Physician Documentation [facility] Name: Sendy Bauer Age: 32 yrs Sex: Female : 1985 Arrival Date: 09/04/2018 Time: 09:40 Bed 7 Private MD: Sandrine Ga K ED Physician Charanjit Samson HPI: 09/04 10:25 This 32 yrs old Female presents to ER via Ambulatory with complaints of snw Abdominal Pain, Vomiting/Diarrhea. 10:25 The patient presents with N/V/D. Onset: The symptoms/episode began/occurred suddenly, 3 snw day(s) ago, and became persistent. The symptoms do not radiate. Associated signs and symptoms: none. The symptoms are described as crampy. Severity of pain: At its worst the pain was very mild. It is unknown whether or not the patient has had similar symptoms in the past. The patient has been recently seen by a physician: 1 week(s) ago, with different complaint(s), and apparently was diagnosed with allergic dermatitis - given steroids. Historical: - Allergies: 10:08 Cipro; ss 10:08 Tramadol HCl; ss - Home Meds: 10:08 None [Active]; ss - PMHx: 10:08 None; ss - PSHx: 10:08 Hysterectomy; ; breast augmentation; ss - Immunization history:: Adult Immunizations up to date. - Social history:: Smoking status: Patient/guardian denies using tobacco. - Ebola Screening: : Patient denies exposure to infectious person Patient denies travel to an Ebola-affected area in the 21 days before illness onset. ROS: 10:24 Constitutional: Negative for fever, chills, and weight loss, Eyes: Negative for injury, snw pain, redness, and discharge, ENT: Negative for injury, pain, and discharge, Neck: Negative for injury, pain, and swelling, Cardiovascular: Negative for chest pain, palpitations, and edema, Respiratory: Negative for shortness of breath, cough, wheezing, and pleuritic chest pain. 10:24 Back: Negative for injury and pain, : Negative for injury, bleeding, discharge, and swelling, MS/Extremity: Negative for injury and deformity, Neuro: Negative for headache, weakness, numbness, tingling, and seizure. 10:24 Abdomen/GI: Positive for nausea, vomiting, and diarrhea. 10:24 Skin: Positive for improving but still present rash. Exam: 10:22 Constitutional: This is a well developed, well nourished patient who is awake, alert, snw and in no acute distress. Head/Face: Normocephalic, atraumatic. Eyes: Pupils equal round and reactive to light, extra-ocular motions intact. Lids and lashes normal. Conjunctiva and sclera are non-icteric and not injected. Cornea within normal limits. Periorbital areas with no swelling, redness, or edema. ENT: Nares patent. No nasal discharge, no septal abnormalities noted. Tympanic membranes are normal and external auditory canals are clear. Oropharynx with no redness, swelling, or masses, exudates, or evidence of obstruction, uvula midline. Mucous membranes moist. Neck: Trachea midline, no thyromegaly or masses palpated, and no cervical lymphadenopathy. Supple, full range of motion without nuchal rigidity, or vertebral point tenderness. No Meningismus. Chest/axilla: Normal chest wall appearance and motion. Nontender with no deformity. No lesions are appreciated. 10:22 Respiratory: Lungs have equal breath sounds bilaterally, clear to auscultation and percussion. No rales, rhonchi or wheezes noted. No increased work of breathing, no retractions or nasal flaring. Abdomen/GI: Soft, non-tender, with normal bowel sounds. No distension or tympany. No guarding or rebound. No evidence of tenderness throughout. Back: No spinal tenderness. No costovertebral tenderness. Full range of motion. Skin: Warm, dry with normal turgor. Normal color with resolving rashes from recent allergic response, no lesions, and no evidence of cellulitis. (pt still taking oral steroids for allergic rxn) MS/ Extremity: Pulses equal, no cyanosis. Neurovascular intact. Full, normal range of motion. Neuro: Awake and alert, GCS 15, oriented to person, place, time, and situation. Cranial nerves II-XII grossly intact. Motor strength 5/5 in all extremities. Sensory grossly intact. Cerebellar exam normal. Normal gait. 10:22 Cardiovascular: Rate: tachycardic, Heart sounds: normal. Vital Signs: 10:08 BP 108 / 77; Pulse 109; Resp 17; Temp 99.6(TE); Pulse Ox 97% on R/A; Weight 56.7 kg; ss Height 5 ft. 2 in. (157.48 cm); Pain 4/10; 11:51 BP 103 / 71; Pulse 98; Resp 18 S; Pulse Ox 99% on R/A; sg 12:45 BP 108 / 72; Pulse 97; Resp 17; Pulse Ox 99% on R/A; Pain 2/10; sg 10:08 Body Mass Index 22.86 (56.70 kg, 157.48 cm) ss MDM: 09:58 Patient medically screened. snw 12:16 Data reviewed: vital signs, nurses notes. Data interpreted: Pulse oximetry: on room air snw is 99 %. Interpretation: normal. Counseling: I had a detailed discussion with the patient and/or guardian regarding: the historical points, exam findings, and any diagnostic results supporting the discharge/admit diagnosis, lab results, the need for outpatient follow up, to return to the emergency department if symptoms worsen or persist or if there are any questions or concerns that arise at home. Special discussion: Based on the patient's Hx, exam, and Dx evaluation, there is no indication for emergent surgery or inpatient Tx. It is understood by the patient/guardian that if the Sx's persist or worsen they need to return immediately for re-evaluation. Based on the history and exam findings, there is no indication for further emergent testing or inpatient evaluation. I discussed with the patient/guardian the need to see the primary care provider for further evaluation of the symptoms. 09/04 09:57 Order name: Basic Metabolic Panel sn 09/04 09:57 Order name: CBC with Diff; Complete Time: 10:47 snw 09/04 09:57 Order name: Creatinine for Radiology; Complete Time: 11:02 snw 09/04 09:57 Order name: Hepatic Function; Complete Time: 11:02 snw 09/04 09:57 Order name: Lipase; Complete Time: 11:02 snw 09/04 09:58 Order name: Basic Metabolic Panel; Complete Time: 11:02 EDMS 09/04 10:48 Order name: Urine Microscopic Only; Complete Time: 11:55 snw 09/04 11:36 Order name: Urine Dipstick--Ancillary (enter results) ms 09/04 11:36 Order name: Urine --Ancillary (enter results) ms 09/04 09:57 Order name: IV Saline Lock; Complete Time: 10:09 snw 09/04 09:57 Order name: Labs collected and sent; Complete Time: 10:09 snw 09/04 10:48 Order name: Urine Test (obtain specimen); Complete Time: 11:38 snw 09/04 10:48 Order name: Urine Dipstick-Ancillary (obtain specimen); Complete Time: 11:39 snw Administered Medications: 10:30 Drug: NS 0.9% 1000 ml Route: IV; Rate: 1 bolus; Site: right antecubital; sg 11:29 Follow up: IV Status: Completed infusion; IV Intake: 1000ml ss 10:30 Drug: Phenergan 6.25 mg Route: IVP; Site: right antecubital; sg 11:17 Follow up: Response: No adverse reaction sg 11:51 Drug: Bentyl 20 mg Route: PO; sg 13:04 Follow up: Response: No adverse reaction sg 12:22 Drug: TORadol 30 mg Route: IVP; Site: right antecubital; sg 13:04 Follow up: Response: No adverse reaction; Pain is decreased sg Disposition: 09/05 06:46 Co-signature as Attending Physician, Charanjit Samson MD I agree with the assessment and carey plan of care. Disposition: 09/04/18 12:15 Discharged to Home. Impression: Nausea and vomiting, Diarrhea, unspecified. - Condition is Stable. - Discharge Instructions: Food Choices to Help Relieve Diarrhea, Adult, Clear Liquid Diet, Adult, Nausea and Vomiting, Adult, Diarrhea, Adult, [id number]. - Prescriptions for Zofran 4 mg Oral Tablet - take 1 tablet by ORAL route every 12 hours As needed; 20 tablet. - Work release form, Medication Reconciliation Form, Thank You Letter, Antibiotic Education, Prescription Opioid Use form. - Follow up: Sandrine Ga MD; When: 1 - 2 days; Reason: Recheck today's complaints, Continuance of care, Re-evaluation by your physician. Follow up: Emergency Department; When: As needed; Reason: Worsening of condition. Signatures: Dispatcher [employer] Mika Marte RN RN sg Anderson, Corey, MD MD cha Therrien, Shelly, POSTAL INSPECTOR-C POSTAL INSPECTOR-[place] Ani Moon RN RN ss Corrections: (The following items were deleted from the chart) 09/04 13:05 12:15 09/04/2018 12:15 Discharged to Home. Impression: Nausea and vomiting; Diarrhea, sg unspecified. Condition is Stable. Forms are Medication Reconciliation Form, Thank You Letter, Antibiotic Education, Prescription Opioid Use. Follow up: Sandrine Ga; When: 1 - 2 days; Reason: Recheck today's complaints, Continuance of care, Re-evaluation by your physician. Follow up: Emergency Department; When: As needed; Reason: Worsening of condition. snw
[2018-09-04] MEDS ORDERED: KETOROLAC 30 MG/ML INJ ONE (12:30)
[2018-09-04 13:58] LABS: Urine Blood 1+ (NEG); Urine Glucose NEGATIVE (NEG); Urine Protein NEGATIVE (NEG); Urine Specific Gravity 1.015 (1.005-1.030); Urine pH 5.5 (5.0-7.0)
== END 2018-09-04 13:05 | disposition home or self-care (01) ==
LOC: ER 09:39
DX: R11.2 Nausea with vomiting, unspecified (principal); R19.7 Diarrhea, unspecified; Z88.1 Allergy status to other antibiotic agents; Z88.6 Allergy status to analgesic agent
CPT/HCPCS: 36415; 80048; 80076; 81003; 81015; 81025; 83690; 85025; 96361; 96374; 96375; 99284; J2550; J7030

== ENCOUNTER 2019-04-25 08:30 | Emergency (ER) | payer BC, OTHER ==
[2019-04-25] MEDS ORDERED: KETOROLAC 30 MG/ML INJ ONE (09:53)
[2019-04-25] MEDS ORDERED: AZITHROMYCIN 250 MG TAB ONE (09:53)
--- NOTE | 2019-04-25 23:27 | EDPHYS ---
Physician Documentation [facility] Name: Sendy Bauer Age: 33 yrs Sex: Female : 1985 Arrival Date: 04/25/2019 Time: 08:39 Bed External Waiting Private MD: ED Physician Ashleigh Cuadra HPI: 04/25 09:29 This 33 yrs old Female presents to ER via Ambulatory with complaints of Chest ma2 Congestion. 09:29 Onset: The symptoms/episode began/occurred gradually, 3 day(s) ago. Current symptoms: ma2 none. The patient has not experienced similar symptoms in the past. sore throat and cough z 3 days, moderate . BOOM STORAGE: 08:44 LMP N/A - Hysterectomy aa5 Historical: - Allergies: 12:52 Cipro; ph 12:52 Tramadol HCl; ph - Immunization history:: Flu vaccine is not up to date. - Social history:: Smoking status: Patient/guardian denies using tobacco, Patient/guardian denies using alcohol, street drugs, The patient lives with family. - Ebola Screening: : No symptoms or risks identified at this time. - Family history:: not pertinent. ROS: 09:29 Constitutional: Negative for fever, chills, and weight loss. ma2 09:29 All other systems are negative. Exam: 09:29 Constitutional: This is a well developed, well nourished patient who is awake, alert, ma2 and in no acute distress. Head/Face: Normocephalic, atraumatic. Eyes: Pupils equal round and reactive to light, extra-ocular motions intact. Lids and lashes normal. Conjunctiva and sclera are non-icteric and not injected. Cornea within normal limits. Periorbital areas with no swelling, redness, or edema. ENT: Nares patent. No nasal discharge, no septal abnormalities noted. Tympanic membranes are normal and external auditory canals are clear. Oropharynx with no redness, swelling, or masses, exudates, or evidence of obstruction, uvula midline. Mucous membranes moist. Chest/axilla: Normal chest wall appearance and motion. Nontender with no deformity. No lesions are appreciated. Cardiovascular: Regular rate and rhythm with a normal S1 and S2. No gallops, murmurs, or rubs. Normal PMI, no JVD. No pulse deficits. Respiratory: Lungs have equal breath sounds bilaterally, clear to auscultation and percussion. No rales, rhonchi or wheezes noted. No increased work of breathing, no retractions or nasal flaring. Abdomen/GI: Soft, non-tender, with normal bowel sounds. No distension or tympany. No guarding or rebound. No evidence of tenderness throughout. Vital Signs: 08:44 BP 115 / 88; Pulse 99; Resp 18 S; Temp 98.5(O); Pulse Ox 96% on R/A; Weight 60.78 kg aa5 (R); Height 5 ft. 2 in. (157.48 cm) (R); Pain 0/10; 10:00 BP 108 / 78; Pulse 87; Resp 18; Temp 98.0; Pulse Ox 97% on R/A; ph 08:44 Body Mass Index 24.51 (60.78 kg, 157.48 cm) aa5 MDM: 08:47 Patient medically screened. ma2 09:29 Data reviewed: vital signs. Counseling: I had a detailed discussion with the patient ma2 and/or guardian regarding: the historical points, exam findings, and any diagnostic results supporting the discharge/admit diagnosis, the presence of at least one elevated blood pressure reading (>120/80) during this emergency department visit, the need for outpatient follow up. Response to treatment: the patient's symptoms have markedly improved after treatment, given toradole and zithromax in er, [email or web address] order system is down and orderes done using manual sheets. Administered Medications: No medications were administered Disposition: 04/25/19 09:31 Discharged to Home. Impression: Acute bronchitis. - Condition is Stable. - Discharge Instructions: Acute Bronchitis, Adult. - Prescriptions for Tylenol- Codeine #3 300-30 mg Oral Tablet - take 2 tablet by ORAL route every 6 hours As needed; 30 tablet. Zithromax Z- Jamaal 250 mg Oral Tablet - take 1 tablet by ORAL route as directed for 5 days Day 1 - take two (2) tablets one time. Day 2, 3, 4 , 5 take one (1) tablet once daily.; 6 tablet. Medrol (Jamaal) 4 mg Oral Tablets, Dose Pack - take 1 tablet by ORAL route as directed - follow package instructions; 1 packet. - Medication Reconciliation Form, Thank You Letter, Antibiotic Education, Prescription Opioid Use form. - Follow up: Private Physician; When: Tomorrow; Reason: Continuance of care. Signatures: Rylie Belle RN RN aa5 Ani Moon RN RN ss Hall, Patricia, RN RN Ashleigh Cuadra MD MD ma2 Corrections: (The following items were deleted from the chart) 11:21 09:31 04/25/2019 09:31 Discharged to Home. Impression: Acute bronchitis. Condition is ss Stable. Forms are Medication Reconciliation Form, Thank You Letter, Antibiotic Education, Prescription Opioid Use. Follow up: Private Physician; When: Tomorrow; Reason: Continuance of care. ma2
--- NOTE | 2019-04-25 23:28 | ER ---
Nurse's Notes [facility] Name: Sendy Bauer Age: 33 yrs Sex: Female : 1985 Arrival Date: 04/25/2019 Time: 08:39 Bed External Waiting [facility] MD: Diagnosis: Acute bronchitis Presentation: 04/25 08:43 Presenting complaint: Patient states: nasal congestion and chest pain only with cough. aa5 Pt states "I was seen at urgent care yesterday and they gave me Cefuroxime but I feel like it's getting worse". Ax: Tramadol and Cipro, Hx. None, Sx. Hysterectomy and . Transition of care: patient was not received from another setting of care. Onset of symptoms was April 2019. Risk Assessment: Do you want to hurt yourself or someone else? Patient reports no desire to harm self or others. Initial Sepsis Screen: Does the patient meet any 2 criteria? HR > 90 bpm. Does the patient have a suspected source of infection? Yes:. Care prior to arrival: None. 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 - Social history:: Smoking status: Patient/guardian denies using tobacco, Patient/guardian denies using alcohol, street drugs, The patient lives with family. - Ebola Screening: : No symptoms or risks identified at this time. - Family history:: not pertinent. Screenin:00 Abuse screen: Denies threats or abuse. Denies injuries from another. Nutritional ph screening: No deficits noted. Tuberculosis screening: No symptoms or risk factors identified. Fall Risk None identified. Assessment: 09:00 General: Appears in no apparent distress. uncomfortable, slender, well groomed, ph Behavior is calm, cooperative, appropriate for age, Reports feeling ill for 12-24 hours. Pain: Complains of pain in chest. Neuro: Level of Consciousness is awake, alert, obeys commands, Oriented to person, place, time, situation. Respiratory: Reports cough that is pain with cough Airway is patent Respiratory effort is even, unlabored, Respiratory pattern is regular, symmetrical, Denies shortness of breath. GI: No signs and/or symptoms were reported involving the gastrointestinal system. EENT: Reports nasal congestion nasal discharge. Derm: Skin is intact, is healthy with good turgor, Skin is pink, warm \\T\\ dry. 10:15 Reassessment: Pt left ED at 1003. ph Vital Signs: 08:44 BP 115 / 88; Pulse 99; Resp 18 S; Temp 98.5(O); Pulse Ox 96% on R/A; Weight 60.78 kg aa5 (R); Height 5 ft. 2 in. (157.48 cm) (R); Pain 0/10; 10:00 BP 108 / 78; Pulse 87; Resp 18; Temp 98.0; Pulse Ox 97% on R/A; ph 08:44 Body Mass Index 24.51 (60.78 kg, 157.48 cm) aa5 ED Course: 08:39 Patient arrived in ED. aa5 08:41 Arm band placed on. aa5 08:44 Triage completed. aa5 08:47 Ashleigh Cuadra MD is Attending Physician. ma2 08:52 Nataliia Haines, RN is Primary Nurse. ph 09:00 Placed in gown. Call light in reach. Side rails up X2. Pulse ox on. NIBP on. Door ph closed. Noise minimized. Warm blanket given. 10:05 No provider procedures requiring assistance completed. Patient did not have IV access ph during this emergency room visit. Administered Medications: No medications were administered Outcome: 09:31 Discharge ordered by . ma2 10:15 Discharged to home ambulatory, with significant other. ph 10:15 Condition: good 10:15 Discharge instructions given to patient, Instructed on discharge instructions, follow up and referral plans. medication usage, Demonstrated understanding of instructions, follow-up care, medications, Prescriptions given X 3. 11:21 Patient left the ED. Signatures: Rylie Belle RN RN 5 Ani Moon RN RN Nataliia Haines, [place] RN Ashleigh Cuadra MD MD ma2 Corrections: (The following items were deleted from the chart) 08:48 08:43 Presenting complaint: Patient states: nasal congestion and chest pain only with aa5 cough. Pt states "I was seen at urgent care yesterday and they gave me Cefuroxime but I feel like it's getting worse" aa5
[2019-04-25 23:32] VITALS: BP 108/78; TEMP 98; O2SAT 97
== END 2019-04-25 11:21 | disposition home or self-care (01) ==
LOC: ER 08:30
DX: J20.9 Acute bronchitis, unspecified (principal); Z88.1 Allergy status to other antibiotic agents; Z88.5 Allergy status to narcotic agent
CPT/HCPCS: 99283

== ENCOUNTER 2024-09-18 17:24 | Emergency (ER) | payer OTHER ==
--- OUTSIDE RECORDS SUMMARY | 2024-09-18 17:28 | XMS REPORT | Continuity of Care Document ---
Author Name Unknown Address [address] [facility] [address] [place] [address] [facility] Address [address] [facility] [place] [address] Care Team Providers Care Pathology Secretary/Transcriptionist Name Role Phone Clemencia Tate Attending Clinician Unavailable GC_GCBZW_Kadiyala_S Attending Clinician Unavaila ble Geoff Tate Admitting Clinician Unavailable GC_GCBZW_Kadiheribertoa_S Admitting Clinician Unavaila ble Payers Payer Name Policy Type Policy Number Effective Date Expirati on Date Source AETNA 53 [id number] [facility] 6 [id number] [facility] Problems Condition Name Condition Details Condition Category Status Onset Date Resolution Date Last Treatment Date Treating Clinician Comments Source [id number] Status post hysterecto my Problem Active [facility] [id number] Chronic gastritis without bleeding, unspecifie d gastritis type Problem [facility] [id number] Mixed hyperlipid emia Problem [facility] [id number] Vitamin D deficiency Problem [facility] [id number] Pain of left femur Problem [facility] Allergies, Adverse Reactions, Alerts Allergy Name Allergy Type Status Severity Reaction(s) Onset Date Inactive Date Treating Clinician Comments Source ciproflo xacin ciproflo xacin Active Unknown [facility] tramadol tramadol Active Unknown Commo n [facility] Social History Social Habit Start Date Stop Date Quantity Comments Source Sex Assigned At [facility] History of Tobacco Use [facility] Smoking Status Start Date Stop Date Source Never Smoker [facility] Medications Ordered Medication Name Filled Medication Name Start Date Stop Date Current Medication? Ordering Clinician Indication Dosage Frequency Signature (SIG) Comments Components Source Sulfamethox azole-Trime thoprim 800-160 MG Sulfamethox azole-Trime thoprim 800-160 MG 2023-05 00:00: 00 No 1{table t} BID Sulfametho xazole-Tri methoprim 800-160 MG Cyclobenzap rine HCl 10 MG Cyclobenzap rine HCl 10 MG No Cyclobenza breann HCl 10 MG Fluticasone Propionate 50 MCG/ACT Fluticasone Propionate 50 MCG/ACT No 1{spray _in_eac h_nostr il} QD Fluticason e Propionate 50 MCG/ACT EPINEPHrine 0.3 MG/0.3ML EPINEPHrine 0.3 MG/0.3ML No EPINEPHrin e 0.3 MG/0.3ML Evy Allergy Evy Allergy No Evy Allergy Pantoprazol e Sodium 40 MG Pantoprazol e Sodium 40 MG No 1{table t} QD Pantoprazo le Sodium 40 MG Immunizations Ordered Immunization Name Filled Immunization Name Date Status Comments Source Boostrix (Tdap) Boostrix (Tdap) 2021-07-30 13:46:00 Completed [facility] Boostrix (Tdap) Boostrix (Tdap) Unknown Completed [facility] Boostrix (Tdap) Boostrix (Tdap) Unknown Completed [facility] Boostrix (Tdap) Boostrix (Tdap) Unknown Completed [facility] Boostrix (Tdap) Boostrix (Tdap) Unknown Completed [facility] Boostrix (Tdap) Boostrix (Tdap) Unknown Completed [facility] Boostrix (Tdap) Boostrix (Tdap) Unknown Completed [facility] Boostrix (Tdap) Boostrix (Tdap) Unknown Completed [facility] Boostrix (Tdap) Boostrix (Tdap) Unknown Completed [facility] Boostrix (Tdap) Boostrix (Tdap) Unknown Completed [facility] Vital Signs Vital Name Observation Time Observation Value Comments S ezrace height 2024-04-19 15:20:00 62 [in_i] Commo n [facility] weight 2024-04-19 15:20:00 134 [lb_av] Comm on [facility] bmi 2024-04-19 15:20:00 24.51 kg/m2 Comm on [facility] height 2024-01-19 14:40:00 62 [in_i] Commo n [facility] weight 2024-01-19 14:40:00 134 [lb_av] Comm on [facility] bmi 2024-01-19 14:40:00 24.51 kg/m2 Comm on [facility] height 2024-01-11 15:40:00 62 [in_i] Commo n [facility] weight 2024-01-11 15:40:00 134.2 [lb_av] Co mmon [facility] temperature 2024-01-11 15:40:00 97.3 [degF] Com mon [facility] bmi 2024-01-11 15:40:00 24.54 kg/m2 Comm on [facility] oximetry 2024-01-11 15:40:00 99 % Commo n [facility] respiratory rate 2024-01-11 15:40:00 16 /min [facility] blood pressure systolic 2024-01-11 15:40:00 126 mm[Hg] [facility] blood pressure diastolic 2024-01-11 15:40:00 70 mm[Hg] [facility] height 2023-12-07 13:40:00 62 [in_i] Commo n [facility] weight 2023-12-07 13:40:00 130 [lb_av] Comm on [facility] bmi 2023-12-07 13:40:00 23.77 kg/m2 Comm on [facility] height 2023-01-01 16:00:00 62 [in_i] Commo n [facility] weight 2023-01-01 16:00:00 130.6 [lb_av] Co mmon [facility] temperature 2023-01-01 16:00:00 97.5 [degF] Com mon [facility] bmi 2023-01-01 16:00:00 23.88 kg/m2 Comm on [facility] oximetry 2023-01-01 16:00:00 100 % Commo n [facility] respiratory rate 2023-01-01 16:00:00 16 /min Common [facility] blood pressure systolic 2023-01-01 16:00:00 107 mm[Hg] Common [facility] blood pressure diastolic 2023-01-01 16:00:00 80 mm[Hg] [facility] height 2022-10-29 11:00:00 62 [in_i] Commo n [facility] weight 2022-10-29 11:00:00 130 [lb_av] Comm on [facility] temperature 2022-10-29 11:00:00 97.8 [degF] Com mon [facility] bmi 2022-10-29 11:00:00 23.77 kg/m2 Comm on [facility] blood pressure systolic 2022-10-29 11:00:00 126 mm[Hg] Common [facility] blood pressure diastolic 2022-10-29 11:00:00 80 mm[Hg] [facility] height 2022-10-27 16:40:00 62 [in_i] Commo n [facility] weight 2022-10-27 16:40:00 130 [lb_av] Comm on [facility] temperature 2022-10-27 16:40:00 97.4 [degF] Com mon [facility] bmi 2022-10-27 16:40:00 23.77 kg/m2 Comm on [facility] oximetry 2022-10-27 16:40:00 99 % Commo n [facility] respiratory rate 2022-10-27 16:40:00 16 /min Common [facility] blood pressure systolic 2022-10-27 16:40:00 134 mm[Hg] Common [facility] blood pressure diastolic 2022-10-27 16:40:00 76 mm[Hg] [facility] height 2021-07-30 13:20:00 62 [in_i] Commo n [facility] weight 2021-07-30 13:20:00 135.0 [lb_av] Co mmon [facility] temperature 2021-07-30 13:20:00 98.1 [degF] Com mon [facility] bmi 2021-07-30 13:20:00 24.69 kg/m2 Comm on [facility] oximetry 2021-07-30 13:20:00 100 % Commo n [facility] respiratory rate 2021-07-30 13:20:00 16 /min [facility] blood pressure systolic 2021-07-30 13:20:00 108 mm[Hg] [facility] diastolic 2021-07-30 13:20:00 73 mm[Hg] [facility] Encounters Start Date/Time End Date/Time Encounter Type Admission Type Attending [facility] Care Facility Care Department Encounter ID Source 2024-06-26 10:31:01 Outpatient Clemencia Tate [facility] [id number] [facility] 2024-04-18 09:10:00 Outpatient Clemencia Tate [facility] [id number] [facility] 2022-12-31 08:08:00 Outpatient Clemencia Tate [facility] [id number] [facility] 2022-10-29 11:42:01 Outpatient Clemencia Tate [facility] [id number] [facility] 2022-10-28 14:48:01 Outpatient Clemencia Tate [facility] [id number] [facility] 2022-10-26 13:27:01 Outpatient Clemencia Tate [facility] [id number] [facility] 2021-07-30 13:15:14 Outpatient Clemencia Tate [facility] [id number] [facility] 2024-07-26 00:00:00 2024-07-26 00:00:00 (TEL) [facility] [id number] [facility] 2024-06-26 00:00:00 2024-06-26 00:00:00 (TEL) [facility] [id number] [facility] 2024-04-19 00:00:00 2024-04-19 00:00:00 OFFICE VISIT ESTAB PT LEVEL 4 [facility] [id number] [facility] 2024-04-17 00:00:00 2024-04-17 00:00:00 (TEL) [facility] [id number] [facility] 2024-04-12 00:00:00 2024-04-12 00:00:00 (TEL) [facility] [id number] [facility] 2024-03-14 00:00:00 2024-03-14 00:00:00 (TEL) [facility] [id number] [facility] 2024-03-08 00:00:00 2024-03-08 00:00:00 (TEL) [facility] [id number] [facility] 2024-01-19 00:00:00 2024-01-19 00:00:00 OFFICE VISIT ESTAB PT LEVEL 4 [facility] [id number] [facility] 2024-01-18 00:00:00 2024-01-18 00:00:00 (TEL) [facility] [id number] [facility] 2024-01-11 00:00:00 2024-01-11 00:00:00 (WELLNESS) Wellness Visit [facility] [id number] [facility] 2023-12-07 00:00:00 2023-12-07 00:00:00 (TEL) [facility] [id number] [facility] 2023-12-07 00:00:00 2023-12-07 00:00:00 OFFICE VISIT ESTAB PT LEVEL 3 [facility] [id number] [facility] 2023-06-16 00:00:00 2023-06-16 00:00:00 (TEL) [facility] [id number] [facility] 2023-03-03 00:00:00 2023-03-03 00:00:00 Outpatient GC_GCBZW_Ka sandra_Heidi [facility] [id number] [facility] 2023-01-08 00:00:00 2023-01-08 00:00:00 (TEL) [facility] [id number] [facility] 2023-01-01 00:00:00 2023-01-01 00:00:00 PREV VISIT EST AGE 18-39 [facility] [id number] [facility] 2022-10-29 00:00:00 2022-10-29 00:00:00 (TEL) [facility]C ST[facility] [id number] [facility] 2022-10-29 00:00:00 2022-10-29 00:00:00 OFFICE VISIT NEW PT LEVEL 3 [facility] [id number] [facility] 2022-10-28 00:00:00 2022-10-28 00:00:00 (TEL) [facility]C ST[facility]C [id number] [facility] 2022-10-27 00:00:00 2022-10-27 00:00:00 OFFICE VISIT ESTAB PT LEVEL 3 [facility] ST[facility] [id number] [facility] 2022-06-17 00:00:00 2022-06-17 00:00:00 (TEL) STL[facility]C [facility]C [id number] [facility] 2021-08-04 00:00:00 2021-08-04 00:00:00 (TEL) STLC STLC [id number] [facility] 2021-07-30 00:00:00 2021-07-30 00:00:00 PREV VISIT NEW AGE 18-39 STLC STLMLC [id number] [facility] Results Test Description Test Time Test Comments Results Result Co mments Source VITAMIN B 12 AND FOLIC [id number] 00:00:00* Test Item Value Reference Range Interpretation Comme nts NUCLEATED RBCS (test code = 98078-5) 0.0 /100 WBC'S See_Comment [Automated message] The system which generated this result transmitted reference range: 0.0 /100 WBC'S. The reference range was not used to interpret this result as normal/abnormal. ABSOLUTE EOSINOPHILS (test code = 02695-4) 0.35 K/UL See_Comment [Automated message] The system which generated this result transmitted reference range: 0.00-0.50 K/UL. The reference range was not used to interpret this result as normal/abnormal. ABSOLUTE LYMPHOCYTES (test code = 05450-3) 1.67 K/UL See_Comment [Automated message] The system which generated this result transmitted reference range: 1.00-4.00 K/UL. The reference range was not used to interpret this result as normal/abnormal. ABSOLUTE MONOCYTES (test code = 23387-9) 0.38 K/UL See_Comment [Automated message] The system which generated this result transmitted reference range: 0.20-1.00 K/UL. The reference range was not used to interpret this result as normal/abnormal. ABSOLUTE NEUTROPHILS (test code = 65935-2) 3.19 K/UL See_Comment [Automated message] The system which generated this result transmitted reference range: 1.50-7.50 K/UL. The reference range was not used to interpret this result as normal/abnormal. BASOPHILS (test code = 08272-6) 0.5 % EOSINOPHILS (test code = 53664-4) 6.2 % HEMATOCRIT (test code = 52052-0) 38.7 % See_Comment [Automated messa ge] The system which generated this result transmitted reference range: 34.0-45.0 %. The reference range was not used to interpret this result as normal/abnormal. HEMOGLOBIN (test code = 718-7) 13.0 G/DL See_Comment [Automated messa ge] The system which generated this result transmitted reference range: 11.5-15.5 G/DL. The reference range was not used to interpret this result as normal/abnormal. LYMPHOCYTES (test code = 07810-1) 29.7 % MCH (test code = 90227-0) 31.1 PG See_Comment [Automated messa ge] The system which generated this result transmitted reference range: 25.0-33.0 PG. The reference range was not used to interpret this result as normal/abnormal. MCHC (test code = 90125-3) 33.6 G/DL See_Comment [Automated messa ge] The system which generated this result transmitted reference range: 31.0-36.0 G/DL. The reference range was not used to interpret this result as normal/abnormal. MCV (test code = 58802-3) 92.6 fL See_Comment [Automated messa ge] The system which generated this result transmitted reference range: 80.0-99.0 fL. The reference range was not used to interpret this result as normal/abnormal. MONOCYTES (test code = 99906-7) 6.7 % NEUTROPHILS (test code = 64245-6) 56.7 % PLATELET COUNT (test code = 47694-2) 254 K/UL See_Comment [Automated messa ge] The system which generated this result transmitted reference range: 130-400 K/UL. The reference range was not used to interpret this result as normal/abnormal. RBC (test code = 10936-7) 4.18 M/UL See_Comment [Automated [employer]] The system which generated this result transmitted reference range: 3.80-5.40 M/UL. The reference range was not used to interpret this result as normal/abnormal. RDW (test code = 46482-8) 12.6 % See_Comment [Automated [employer]] The system which generated this result transmitted reference range: 11.5-15.0 %. The reference range was not used to interpret this result as normal/abnormal. WBC (test code = 92039-2) 5.6 K/UL See_Comment [Automated [employer]] The system which generated this result transmitted reference range: 3.5-11.0 K/UL. The reference range was not used to interpret this result as normal/abnormal. UNSATURATED IBC (test code = 2501-5) 170 UG/DL See_Comment [Automated [employer]] The system which generated this result transmitted reference range: 112-347 UG/DL. The reference range was not used to interpret this result as normal/abnormal. HEMOGLOBIN A1c (test code = 4548-4) 5.4 % See_Comment [Automated [employer]] The system which generated this result transmitted reference range: 4.2-5.6 %. The reference range was not used to interpret this result as normal/abnormal. TSH REFLEX TO FREE T4 (test code = 46035-7) 2.470 UIU/ML See_Comment [Automated message] The system which generated this result transmitted reference range: 0.400-4.100 UIU/ML. The reference range was not used to interpret this result as normal/abnormal. CALC LDL CHOL (test code = 59446-9) 121 MG/DL See_Comment H [Automated [employer]] The system which generated this result transmitted reference range: <100 MG/DL. The reference range was not used to interpret this result as normal/abnormal. CHOLESTEROL (test code = 2093-3) 186 MG/DL See_Comment [Automated [employer]] The system which generated this result transmitted reference range: <200 MG/DL. The reference range was not used to interpret this result as normal/abnormal. HDL CHOLESTEROL (test code = 2085-9) 43 MG/DL See_Comment [Automated [employer]] The system which generated this result transmitted reference range: >39 MG/DL. The reference range was not used to interpret this result as normal/abnormal. RISK RATIO LDL/HDL (test code = 18760-4) 2.81 RATIO See_Comment [Automated message] The system which generated this result transmitted reference range: <3.22 RATIO. The reference range was not used to interpret this result as normal/abnormal. TRIGLYCERIDES (test code = 2571-8) 117 MG/DL See_Comment [Automated [employer]] The system which generated this result transmitted reference range: <150 MG/DL. The reference range was not used to interpret this result as normal/abnormal. ALBUMIN (test code = 1751-7) 4.2 G/DL See_Comment [Automated [employer]] The system which generated this result transmitted reference range: 3.5-5.2 G/DL. The reference range was not used to interpret this result as normal/abnormal. ALKALINE PHOSPHATASE (test code = 6768-6) 52 U/L See_Comment [Automated message] The system which generated this result transmitted reference range: 40-112 U/L. The reference range was not used to interpret this result as normal/abnormal. BILIRUBIN, TOTAL (test code = 1975-2) 0.3 MG/DL See_Comment [Automated [employer]] The system which generated this result transmitted reference range: <=1.2 MG/DL. The reference range was not used to interpret this result as normal/abnormal. BUN (test code = 3094-0) 23 MG/DL See_Comment H [Automated [employer]] The system which generated this result transmitted reference range: 6-20 MG/DL. The reference range was not used to interpret this result as normal/abnormal. CALCIUM (test code = 30666-6) 9.2 MG/DL See_Comment [Automated [employer]] The system which generated this result transmitted reference range: 8.5-10.5 MG/DL. The reference range was not used to interpret this result as normal/abnormal. CALC A/G RATIO (test code = 1759-0) 1.6 RATIO See_Comment [Automated [employer]] The system which generated this result transmitted reference range: 1.0-2.6 RATIO. The reference range was not used to interpret this result as normal/abnormal. CALC BUN/CREAT (test code = 3097-3) 26 RATIO See_Comment [Automated messa ge] The system which generated this result transmitted reference range: 6-28 RATIO. The reference range was not used to interpret this result as normal/abnormal. CALC GLOBULIN (test code = 67135-3) 2.7 G/DL See_Comment [Automated messa ge] The system which generated this result transmitted reference range: 1.9-3.7 G/DL. The reference range was not used to interpret this result as normal/abnormal. CARBON DIOXIDE (test code = 1963-8) 26 MEQ/L See_Comment [Automated messa ge] The system which generated this result transmitted reference range: 19-31 MEQ/L. The reference range was not used to interpret this result as normal/abnormal. CHLORIDE (test code = 2075-0) 105 MEQ/L See_Comment [Automated messa ge] The system which generated this result transmitted reference range: 95-107 MEQ/L. The reference range was not used to interpret this result as normal/abnormal. CREATININE (test code = 2160-0) 0.89 MG/DL See_Comment [Automated messa ge] The system which generated this result transmitted reference range: 0.60-1.30 MG/DL. The reference range was not used to interpret this result as normal/abnormal. eGFR (2020 CKD-EPI) (test code = 50233-1) 85 ML/MIN/1.73 See_Comment [Automated message] The system which generated this result transmitted reference range: >60 ML/MIN/1.73. The reference range was not used to interpret this result as normal/abnormal. GLUCOSE (test code = 1558-6) 90 MG/DL See_Comment [Automated messa ge] The system which generated this result transmitted reference range: 70-99 MG/DL. The reference range was not used to interpret this result as normal/abnormal. POTASSIUM (test code = 2823-3) 4.6 MEQ/L See_Comment [Automated messa ge] The system which generated this result transmitted reference range: 3.5-5.4 MEQ/L. The reference range was not used to interpret this result as normal/abnormal. PROTEIN, TOTAL (test code = 2885-2) 6.9 G/DL See_Comment [Automated messa ge] The system which generated this result transmitted reference range: 6.1-8.3 G/DL. The reference range was not used to interpret this result as normal/abnormal. AST (test code = 1920-8) 15 U/L See_Comment [Automated messa ge] The system which generated this result transmitted reference range: 9-40 U/L. The reference range was not used to interpret this result as normal/abnormal. ALT (test code = 1742-6) 13 U/L See_Comment [Automated messa ge] The system which generated this result transmitted reference range: 5-40 U/L. The reference range was not used to interpret this result as normal/abnormal. SODIUM (test code = 2951-2) 139 MEQ/L See_Comment [Automated messa ge] The system which generated this result transmitted reference range: 133-146 MEQ/L. The reference range was not used to interpret this result as normal/abnormal. CALC % IRON SAT (test code = 2502-3) 34 % See_Comment [Automated messa ge] The system which generated this result transmitted reference range: 20-50 %. The reference range was not used to interpret this result as normal/abnormal. CALC TOTAL IBC (test code = 28066-9) 256 UG/DL See_Comment [Automated messa ge] The system which generated this result transmitted reference range: 250-450 UG/DL. The reference range was not used to interpret this result as normal/abnormal. IRON, SERUM (test code = 2498-4) 86 UG/DL See_Comment [Automated messa ge] The system which generated this result transmitted reference range: 37-145 UG/DL. The reference range was not used to interpret this result as normal/abnormal. VITAMIN D, 25 OH (test code = 1988-) 17 NG/ML SEE BELOW NG/ML L FERRITIN (test code = 56339-9) 70 NG/ML See_Comment [Automated messa ge] The system which generated this result transmitted reference range: 13-200 NG/ML. The reference range was not used to interpret this result as normal/abnormal. FOLIC ACID (test code = 2284-8) 9.8 UG/L SEE BELOW UG/L VITAMIN B-12 (test code = 2132-9) 620 PG/ML See_Comment [Automated messa ge] The system which generated this result transmitted reference range: 200-950 PG/ML. The reference range was not used to interpret this result as normal/abnormal. CBC W/AUTO [id number] 00:00:00* Test Item Value Reference Range Interpretation Comme nts NUCLEATED RBCS (test code = 06801-6) 0.0 /100 WBC'S See_Comment [Automated messa ge] The system which generated this result transmitted reference range: 0.0 /100 WBC'S. The reference range was not used to interpret this result as normal/abnormal. ABSOLUTE EOSINOPHILS (test code = 31986-6) 0.25 K/UL See_Comment [Automated messa ge] The system which generated this result transmitted reference range: 0.00-0.50 K/UL. The reference range was not used to interpret this result as normal/abnormal. ABSOLUTE LYMPHOCYTES (test code = 73832-7) 1.89 K/UL See_Comment [Automated messa ge] The system which generated this result transmitted reference range: 1.00-4.00 K/UL. The reference range was not used to interpret this result as normal/abnormal. ABSOLUTE MONOCYTES (test code = 75125-6) 0.45 K/UL See_Comment [Automated messa ge] The system which generated this result transmitted reference range: 0.20-1.00 K/UL. The reference range was not used to interpret this result as normal/abnormal. ABSOLUTE NEUTROPHILS (test code = 41989-3) 5.70 K/UL See_Comment [Automated messa ge] The system which generated this result transmitted reference range: 1.50-7.50 K/UL. The reference range was not used to interpret this result as normal/abnormal. BASOPHILS (test code = 48817-5) 0.4 % EOSINOPHILS (test code = 88037-7) 3.0 % HEMATOCRIT (test code = 43209-3) 38.1 % See_Comment [Automated messa ge] The system which generated this result transmitted reference range: 34.0-45.0 %. The reference range was not used to interpret this result as normal/abnormal. HEMOGLOBIN (test code = 718-7) 13.0 G/DL See_Comment [Automated messa ge] The system which generated this result transmitted reference range: 11.5-15.5 G/DL. The reference range was not used to interpret this result as normal/abnormal. LYMPHOCYTES (test code = 60358-0) 22.7 % MCH (test code = 37023-1) 30.4 PG See_Comment [Automated messa ge] The system which generated this result transmitted reference range: 25.0-33.0 PG. The reference range was not used to interpret this result as normal/abnormal. MCHC (test code = 46516-9) 34.1 G/DL See_Comment [Automated messa ge] The system which generated this result transmitted reference range: 31.0-36.0 G/DL. The reference range was not used to interpret this result as normal/abnormal. MCV (test code = 40873-2) 89.2 fL See_Comment [Automated messa ge] The system which generated this result transmitted reference range: 80.0-99.0 fL. The reference range was not used to interpret this result as normal/abnormal. MONOCYTES (test code = 18546-3) 5.4 % NEUTROPHILS (test code = 44846-0) 68.4 % PLATELET COUNT (test code = 42342-2) 279 K/UL See_Comment [Automated messa ge] The system which generated this result transmitted reference range: 130-400 K/UL. The reference range was not used to interpret this result as normal/abnormal. RBC (test code = 38923-5) 4.27 M/UL See_Comment [Automated messa ge] The system which generated this result transmitted reference range: 3.80-5.40 M/UL. The reference range was not used to interpret this result as normal/abnormal. RDW (test code = 62642-9) 12.9 % See_Comment [Automated messa ge] The system which generated this result transmitted reference range: 11.5-15.0 %. The reference range was not used to interpret this result as normal/abnormal. WBC (test code = 48276-5) 8.3 K/UL See_Comment [Automated messa ge] The system which generated this result transmitted reference range: 3.5-11.0 K/UL. The reference range was not used to interpret this result as normal/abnormal. SCR MAMM BILATERAL MARLENI CAD DIGITAL [id number] 10:09:58 Name: Paulina : 1985 Sex: F* - SCR MAMM BILATERAL MARLENI CAD DIGITAL W/AUGMENTATIONBILATERAL DIGITAL SCREENING MAMMOGRAM 3D/2D WITH CAD WITH AUGMENTATION: 05/26/2022LINICAL: Asymptomatic. Digital breast tomosynthesis was performed in addition to routine CC and MLO views. Current mammographic images were evaluated by [employer] CAD (computer-aided detection) software. No prior exams were available for comparison. The tissue of both breasts is extremely dense, which lowers the sensitivity of mammography. Bilateral breast implants are present. There is a biopsy clip in the left breast. No suspicious mass, architectural distortion, malignant type calcificat ion, or lymph node abnormality detected. IMPRESSION: BENIGNThere is no mammographic evidence of malignancy. Resume annual screening mammography in one year. (05/27/2023) Syed Izaguirre M.D. et/penrad:05/29/2022 10:09:58 Attending Technologist: Lauren Mcghee MM, [facility], [place] MammographyImaging Tech nologist: Geno Cassidy MM, [facility] [place] Mammographyletter sent: BIRADS 1-2 Normal Mammogram BI-RADS: 2 BenignFemur LeftFemur Left
[2024-09-18] MEDS ORDERED: MORPHINE 4 MG/ML SYR ONE (20:24)
[2024-09-18] MEDS ORDERED: ONDANSETRON 4 MG/2 ML VIAL ONE (20:24)
[2024-09-18] MEDS ORDERED: NA CHLORIDE 0.9% 1,000 ML ONE (20:25)
[2024-09-18 20:33] LABS: Absolute Eosinophils 0.2 K/uL (0-0.5); Absolute Lymphocytes (CBC) 2.1 K/uL (0.7-4.9); Absolute Monocytes 0.8 K/uL (0.1-1.3); Absolute Neutrophil 7.6 K/uL (1.8-8.0); Basophils % 0.4 % (0-1.3); Eosinophils % 1.7 % (0-4.4); Hematocrit 35.8 % (36.0-45.0); Hemoglobin 12.5 g/dL (12.0-15.0); Lymphocytes % 20.1 % (15.3-44.8); MCH 30.8 pg (27.0-35.0); MCHC 34.9 g/dL (32.0-36.0); MCV 88.4 fL (80-100); MPV 7.5 fL (7.6-11.3); Monocytes % 7.1 % (3.3-12.3); Neutrophils % 70.7 % (41.7-73.7); Platelets 315 thou/uL (152-406); RBC Red Blood Cell Count 4.05 M/uL (3.86-4.86); Red Cell Distribution Width 13.4 % (12.1-15.2)
[2024-09-18 20:35] LABS: Specific Gravity 1.027 (1.005-1.030)
[2024-09-18 20:44] LABS: Specific Gravity 1.027 (1.005-1.030); Sqamous Epithelial None Seen /HPF (None Seen); Urine Bacteria <20 /HPF (<20); Urine Bilirubin NEGATIVE (Negative); Urine Blood Trace (Negative); Urine Clarity Clear (Clear); Urine Color Light-Yellow (Yellow); Urine Culture Reflex Order NOT NEEDED; Urine Glucose NEGATIVE (Negative); Urine Ketones NEGATIVE (Negative); Urine Microscopic Reflex YN ORDER UMIC; Urine Mucus Slight /HPF (None Seen); Urine Nitrite NEGATIVE (Negative); Urine Protein NEGATIVE (Negative); Urine RBC <5 /HPF (None Seen); Urine Urobilinogen Normal (Normal); Urine WBC None Seen /HPF (<5); Urine pH 5.5 (5.0-7.0)
[2024-09-18 20:59] LABS: ALT/SGPT 19 U/L (13-56); Albumin 3.8 g/dL (3.4-5.0); Alkaline Phosphatase 62 U/L (45-117); Anion Gap 4.7 mEq/L (5.0-15.0); BUN Blood Urea Nitrogen 17 mg/dL (7-18); Bicarbonate 29 mEq/L (21-32); Bilirubin Total 0.3 mg/dL (0.2-1.0); Glomerular Filtration Rate 101 ml/min (=/>90); Glucose Level 89 mg/dL (74-106); Lipase 58 U/L (13-75); Potassium 3.7 mEq/L (3.5-5.1); Protein, Total 7.8 g/dL (6.4-8.2); Sodium Level 136 mEq/L (136-145)
[2024-09-18 21:00] LABS: AST/SGOT < 10 U/L (15-37)
--- NOTE | 2024-09-18 21:32 | RAD REPORT ---
EXAMINATION: Abdomen Pelvis W Contrast CLINICAL INDICATION: Female, 38 years old.ABD PAIN TECHNIQUE: CT abdomen and pelvis was performed, after the administration of IV contrast, as per [facility]. Axial, sagittal and coronal reconstructions were obtained. One or more of the following dose reduction techniques were used: Automated exposure control, adjustment of the mA and/o r kV according to patient size, and/or iterative reconstruction. Unless otherwise specified, incidental findings do not require dedicated imaging follow-up. [id number]. COMPARISON: 03/16/2018 FINDINGS: LOWER CHEST: No acute process identified.No significant pericardial effusion. Breast prostheses UPPER GI: No significant abnormality. LIVER: No significant focal abnormality. GALLBLADDER/BILE DUCTS: No biliary ductal dilatation.? PANCREAS: No mass, ductal dilation, or lisa-pancreatic fluid. SPLEEN: Unremarkable. ADRENALS: No adrenal masses. KIDNEYS AND URETERS: No hydronephrosis.Left lower pole renal mass measuring 2.8 cm which is new from prior. 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 There is urothelial thickening at the right lower pole.No renal or ureteral calculi identified. ABDOMINAL AORTA AND OTHER VESSELS: Normal caliber aorta and IVC. PERITONEUM: No abnormal free fluid. No free air. LYMPH NODES: No pathologic lymphadenopathy. ABDOMINAL WALL: Unremarkable SMALL BOWEL/COLON: Small bowel has normal course and caliber. No colonic wall thickening or pericolon ic inflammatory changes.Normal appendix. Moderate stool in the cecum which is located midline. URINARY BLADDER: Underdistended but grossly unremarkable. REPRODUCTIVE ORGANS: Uterus surgically absent. No adnexal abnormality. Right adnexal cystic lesion me asuring 4 cm. Left adnexal cystic structure which is slightly tubular measuring 6.9 x 3.3 cm MUSCULOSKELETAL: No acute or suspicious osseous abnormality. ADDITIONAL FINDINGS: None. 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 There is abnormal urothelial thickening at the lower pole moiety which could be from infection or inflammation. No hydronephrosis. Normal appendix. Mostly solid left lower pole renal mass which is new from 03/16/2018 and concerning for a neoplasm, p ossibly benign or malignant. Recommend urologic referral. Cystic adnexal structures bilaterally. Recommend nonemergent pelvic ultrasound.
[2024-09-18] MEDS ORDERED: KETOROLAC 30 MG/ML INJ ONE (22:05)
--- NOTE | 2024-09-18 22:16 | ER ---
Nurse's Notes [facility] Name: Sendy Bauer Age: 38 yrs Sex: Female : 1985 Arrival Date: 09/18/2024 Time: 17:24 Bed 5 Private MD: Diagnosis: Other and unspecified ovarian cysts;Left Renal Mass Presentation: 09/18 17:54 Chief complaint: Patient states: she has been having right sided abdominal pain that ap3 started last night. she states she is nauseated but has not vomited. patient reports she went to urgent care, and was sent here to rule out appendicitis. patient currently rates her pain as a 8/10 on the pain scale. Coronavirus screen: At this time, the client does not indicate any symptoms associated with coronavirus-19. Ebola Screen: No symptoms or risks identified at this time. Initial Sepsis Screen: Does the patient meet any 2 criteria? No. Patient's initial sepsis screen is negative. Does the patient have a suspected source of infection? No. Patient's initial sepsis screen is negative. Risk Assessment: Do you want to hurt yourself or someone else? Patient reports no desire to harm self or others. Onset of symptoms was September 16, 2024. 17:54 Method Of Arrival: Ambulatory ap3 17:54 Acuity: JAMIE 3 ap3 Triage Assessment: 17:56 General: Appears in no apparent distress. Behavior is calm, cooperative, appropriate ap3 for age. Pain: Complains of pain in right upper quadrant and right lower quadrant Pain currently is 8 out of 10 on a pain scale. Pain began 1 day ago. Neuro: Level of Consciousness is awake, alert, obeys commands, Oriented to person, place, time, situation, Appropriate for age. Cardiovascular: Patient's skin is warm and dry. Respiratory: Airway is patent Respiratory effort is even, unlabored, Respiratory pattern is regular, symmetrical. GI: Reports lower abdominal pain, upper abdominal pain, nausea. Historical: - Allergies: 17:56 Cipro; ap3 17:56 Tramadol HCl; ap3 - PMHx: 17:56 None; ap3 - PSHx: 17:59 section; sb4 - Immunization history:: Client reports receiving the 2nd dose of the Covid vaccine, Flu vaccine is not up to date. - Infectious Disease History:: Denies. - Social history:: Smoking status: Patient denies any tobacco usage or history of. Screenin:57 [facility] ED Fall Risk Assessment (Adult) History of falling in the last 3 months, ap3 including since admission No falls in past 3 months (0 pts) Confusion or Disorientation No (0 pts) Intoxicated or Sedated No (0 pts) Impaired Gait No (0 pts) Mobility Assist Device Used No (0 pt) Altered Elimination No (0 pt) Score/Fall Risk Level 0 - 2 = Low Risk Oriented to surroundings, Maintained a safe environment, Educated pt \T\ family on fall prevention, incl call for assistance when getting out of bed, Assessed \T\ reinforced patient's understanding of fall precautions, Hourly rounding (assess needs \T\ fall precautionary measures) done, Used ambulatory aids as needed (educated on \T\ assisted with). Abuse screen: Denies threats or abuse. Nutritional screening: No deficits noted. Tuberculosis screening: No symptoms or risk factors identified. Assessment: 20:00 General: Appears in no apparent distress. uncomfortable, Behavior is calm, cooperative, jb4 appropriate for age. Pain: Complains of pain in right lower quadrant Pain does not radiate. Pain currently is 8 out of 10 on a pain scale. Quality of pain is described as sharp, stabbing. Neuro: Level of Consciousness is awake, alert, obeys commands, Oriented to person, place, time, situation. Cardiovascular: Patient's skin is warm and dry. Respiratory: Airway is patent Respiratory effort is even, unlabored, Respiratory pattern is regular, symmetrical. GI: Abdomen is flat, non-distended, Reports lower abdominal pain. Derm: Skin is intact, Skin is pink, warm \T\ dry. 20:56 Reassessment: Patient appears in no apparent distress at this time. Patient and/or jb4 family updated on plan of care and expected duration. Pain level reassessed. Patient is alert, oriented x 3, equal unlabored respirations, skin warm/dry/pink. Patient states feeling better. 22:27 Reassessment: Patient appears in no apparent distress at this time. Patient and/or jb4 family updated on plan of care and expected duration. Pain level reassessed. Patient is alert, oriented x 3, equal unlabored respirations, skin warm/dry/pink. Vital Signs: 17:54 BP 118 / 82; Pulse 88; Resp 17; Temp 98; Pulse Ox 100% ; Weight 58.97 kg; Height 5 ft. ap3 2 in. ; Pain 8/10; 20:00 BP 109 / 76; Pulse 94; Resp 16; Pulse Ox 100% on R/A; jb4 22:27 BP 106 / 72; Pulse 97; Resp 16; Pulse Ox 99% on R/A; jb4 17:54 Body Mass Index 23.78 (58.97 kg, 157.48 cm) ap3 17:54 Pain Scale: Adult ap3 ED Course: 17:28 Patient arrived in ED. cj3 17:29 Estrella Gee PA-C is PHCP. sb4 17:29 Nessa Jordan MD is Attending Physician. sb4 17:56 Triage completed. ap3 17:57 Arm band placed on right wrist. ap3 20:04 Radiology exam delayed due to lab results not completed at this time. (BUN/Creatinine) nj test not completed at this time. IV insertion attempt and/or patient not having appropriate IV at this time. 20:04 Sergio Mobley, [place] is Primary Nurse. jb4 20:10 Inserted saline lock: 20 gauge in right antecubital area, using aseptic technique. jb4 Blood collected. 20:14 Radiology exam delayed due to lab results not completed at this time. (HCG) ls3 (BUN/Creatinine) test not completed at this time. IV insertion attempt and/or patient not having appropriate IV at this time. 20:33 PHCP role handed off by Estrella Gee PA-C cp 20:33 Charanjit Garza PA is PHCP. cp 21:15 CT Abd/Pelvis - IV Contrast Only In Process Unspecified. EDMS 22:14 Norma Garcia MD is Referral Physician. cp 22:15 Ang Villatoro MD is Referral Physician. cp 22:27 Patient has correct armband on for positive identification. Bed in low position. Call jb4 light in reach. Side rails up X 1. Provided Education on: discharge instructions. 22:27 No provider procedures requiring assistance completed. IV discontinued, intact, jb4 bleeding controlled, No redness/swelling at site. Pressure dressing applied. Administered Medications: 20:36 Drug: Ondansetron IVP 4 mg IVP once; over 2 minutes Route: IVP; Site: right antecubital;jb4 22:27 Follow up: Response: No adverse reaction; Marked relief of symptoms jb4 20:36 Drug: morphine IVP or IV 4 mg IVP once over 4 mins Route: IVP; Infused Over: 4 mins; jb4 Site: right antecubital; 22:27 Follow up: Response: No adverse reaction; Marked relief of symptoms jb4 20:36 Drug: NS 0.9% IV 1000 ml IV at 1 bolus Per protocol; to be given as a bolus over 60 jb4 minutes Route: IV; Rate: 1 bolus; Site: right antecubital; 22:27 Follow up: Response: No adverse reaction; IV Status: Completed infusion; IV Intake: jb4 1000ml 22:16 Drug: Ketorolac IVP 15 mg IVP once Route: IVP; Site: right antecubital; jb4 22:27 Follow up: Response: No adverse reaction; Marked relief of symptoms jb4 Medication: 22:27 VIS not applicable for this client. jb4 Intake: 22:27 IV: 1000ml; Total: 1000ml. jb4 Outcome: 22:15 Discharge ordered by MD. onofre 22:29 Discharged to home ambulatory, jb4 22:29 Condition: stable 22:29 Discharge instructions given to patient, Instructed on discharge instructions, follow up and referral plans. no drinking with medication, medication usage, Demonstrated understanding of instructions, follow-up care, medications, Prescriptions given X 2, 22:29 Patient left the ED. jb4 Signatures: Dispatcher [employer] EDMS Charanjit Garza PA PA cp Bryson, James, RN RN jb4 Suman Cruz Amanda, RN RN ap3 Lulu Yousif 3 Estrella Gee PA-C PA-C sb4 Sue Meléndez cj3
--- NOTE | 2024-09-18 22:16 | EDPHYS ---
Physician Documentation [facility] Name: Sendy Bauer Age: 38 yrs Sex: Female : 1985 Arrival Date: 09/18/2024 Time: 17:24 Bed 5 Private MD: ED Physician Nessa Jordan HPI: 09/18 17:56 This 38 yrs old Female presents to ER via Ambulatory with complaints of sb4 Abdominal Pain - RT LOWER. 17:56 The patient presents with abdominal pain right lower quadrant. Onset: The sb4 symptoms/episode began/occurred last night. The symptoms do not radiate. Associated signs and symptoms: Pertinent positives: nausea, Pertinent negatives: constipation, diarrhea, dysuria, fever, vomiting. The symptoms are described as sharp. Modifying factors: The symptoms are alleviated by nothing, the symptoms are aggravated by nothing. The patient has been recently seen at an urgent care, just prior to arrival, for similar complaints, and was sent to the [facility] Emergency Department for further evaluation. 17:58 went to urgent care [employer], had UA that was negative for infection, send to ED for appy sb4 rule out. Historical: - Allergies: 17:56 Cipro; ap3 17:56 Tramadol HCl; ap3 - PMHx: 17:56 None; ap3 - PSHx: 17:59 section; sb4 - Immunization history:: Client reports receiving the 2nd dose of the Covid vaccine, Flu vaccine is not up to date. - Infectious Disease History:: Denies. - Social history:: Smoking status: Patient denies any tobacco usage or history of. ROS: 17:56 Constitutional: Negative for fever, chills, and weight loss, sb4 17:56 Abdomen/GI: Positive for abdominal pain, nausea, 17:56 All other systems are negative, Exam: 17:56 Head/Face: Normocephalic, atraumatic. Eyes: Extra-ocular motions intact. Periorbital sb4 areas with no swelling, redness, or edema. ENT: Mucous membranes moist. Cardiovascular: Regular rate and rhythm with a normal S1 and S2. Respiratory: No increased work of breathing, no retractions or nasal flaring. Skin: Warm, dry with normal turgor. Normal color with no rashes, no lesions, and no evidence of cellulitis. 17:56 Constitutional: The patient appears alert, awake, uncomfortable, 17:56 Abdomen/GI: Inspection: abdomen appears normal, Bowel sounds: normal, Palpation: soft, mild abdominal tenderness, in the right lower quadrant, Vital Signs: 17:54 BP 118 / 82; Pulse 88; Resp 17; Temp 98; Pulse Ox 100% ; Weight 58.97 kg; Height 5 ft. ap3 2 in. ; Pain 8/10; 20:00 BP 109 / 76; Pulse 94; Resp 16; Pulse Ox 100% on R/A; jb4 22:27 BP 106 / 72; Pulse 97; Resp 16; Pulse Ox 99% on R/A; jb4 17:54 Body Mass Index 23.78 (58.97 kg, 157.48 cm) ap3 17:54 Pain Scale: Adult ap3 MDM: 17:29 Medical Screening Exam initiated sb4 17:56 Differential diagnosis: appendicitis, Cholelithiasis, diverticulitis, non-specific abd sb4 pain. 22:15 Data reviewed: vital signs, nurses notes, lab test result(s), radiologic studies, and cp as a result, I will discharge patient. 22:15 I considered the following discharge prescriptions or medication management in the emergency department Medications were administered in the Emergency Department. See MAR. Counseling: I had a detailed discussion with the patient and/or guardian regarding the historical points, exam findings, and any diagnostic results supporting the discharge/admit diagnosis, lab results, radiology results, the need for outpatient follow up, an OB/Gyne specialist, a urologist, to return to the emergency department if symptoms worsen or persist or if there are any questions or concerns that arise at home. Response to treatment: the patient's symptoms have mildly improved after treatment, and as a result, I will discharge patient. 09/18 17:56 Order name: CBC with Diff; Complete Time: 21:23 sb4 09/18 21:24 Interpretation: Normal except: HCT 35.8; MPV 7.5. cp 09/18 17:56 Order name: CMP; Complete Time: 21:23 sb4 09/18 17:56 Order name: Lipase; Complete Time: 21:23 sb4 09/18 17:58 Order name: UA Rfx Perez Cult if indicated; Complete Time: 21:23 sb4 09/18 21:44 Interpretation: Reviewed. cp 09/18 17:59 Order name: Test, Urine; Complete Time: 21:23 4 09/18 17:56 Order name: CT Abd/Pelvis - IV Contrast Only; Complete Time: 21:41 sb4 09/18 17:56 Order name: IV Saline Lock; Complete Time: 20:18 sb4 09/18 17:56 Order name: Labs collected and sent; Complete Time: 20:18 4 09/18 21:45 Order name: PO challenge; Complete Time: 22:27 cp Administered Medications: 20:36 Drug: Ondansetron IVP 4 mg IVP once; over 2 minutes Route: IVP; Site: right antecubital;jb4 22:27 Follow up: Response: No adverse reaction; Marked relief of symptoms jb4 20:36 Drug: morphine IVP or IV 4 mg IVP once over 4 mins Route: IVP; Infused Over: 4 mins; jb4 Site: right antecubital; 22:27 Follow up: Response: No adverse reaction; Marked relief of symptoms jb4 20:36 Drug: NS 0.9% IV 1000 ml IV at 1 bolus Per protocol; to be given as a bolus over 60 jb4 minutes Route: IV; Rate: 1 bolus; Site: right antecubital; 22:27 Follow up: Response: No adverse reaction; IV Status: Completed infusion; IV Intake: jb4 1000ml 22:16 Drug: Ketorolac IVP 15 mg IVP once Route: IVP; Site: right antecubital; jb4 22:27 Follow up: Response: No adverse reaction; Marked relief of symptoms jb4 Disposition Summary: 09/18/24 22:15 Discharge Ordered Notes: Location: Home cp Problem: new cp Symptoms: have improved cp Condition: Stable cp Diagnosis - Other and unspecified ovarian cysts cp - Left Renal Mass cp Followup: cp - With: Norma Garcia MD - When: 1 week - Reason: ovarian cysts Followup: cp - With: Ang Villatoro MD - When: 1 week - Reason: renal mass Discharge Instructions: - Discharge Summary Sheet cp - Ovarian Cyst cp - Renal Mass cp Forms: - Medication Reconciliation Form cp - Antibiotic Education cp - Prescription Opioid Use cp - Patient Portal Instructions cp - Leadership Thank You Letter cp Prescriptions: - Diclofenac Sodium 75 mg Oral Tablet Sustained Release - take 1 tablet ORAL route 2 times per day; 30 tablet; Refills: 0, Product cp Selection Permitted - Macrobid 100 mg Oral Capsule - take 1 capsule ORAL route every 12 hours for 7 days; 14 capsule; Refills: 0, cp Product Selection Permitted Signatures: Dispatcher [employer] EDMS Charanjit Garza PA PA cp Bryson, James, RN RN jb4 Lashae Lindquist RN RN ap3 Estrella Gee PABenitez PABenitez sb4 Corrections: (The following items were deleted from the chart) 17:57 17:56 CBC+H.LAB.BRZ ordered. EDMS EDMS 17:57 17:56 COMPREHENSIVE METABOLIC PANEL+C.LAB.BRZ ordered. EDMS EDMS 17:57 17:56 LIPASE+C.LAB.BRZ ordered. EDMS EDMS 18:00 18:00 Test, Urine+UC.LAB.BRZ ordered. EDMS EDMS
[2024-09-18 23:04] VITALS: TEMP 98
[2024-09-18 23:07] VITALS: BP 106/72; O2SAT 99
== END 2024-09-18 22:29 | disposition home or self-care (01) ==
LOC: ER 17:24
DX: N83.291 Other ovarian cyst, right side (principal); N28.89 Other specified disorders of kidney and ureter
CPT/HCPCS: 96361; 85025; 81001; 36415; 81025; 83690; 80053; 74177; 96375; 96374; 99284; Q9967; J2405; J7030